=== PATIENT | male | born 1940 | race Caucasian/White ===

== ENCOUNTER 2022-02-16 11:54 | Outpatient (CLI) | payer MEDICARE, SELFPAY | END 2022-02-16 11:55 | disposition home or self-care (01) | LOC: OP CLINIC 11:54 | PROVIDERS: PCP Surgery; Visit Provider Internal Medicine Gastroenterology | DX: D50.9 Iron deficiency anemia, unspecified (principal); K63.5 Polyp of colon; K57.30 Diverticulosis of large intestine without perforation or abscess without bleeding; K44.9 Diaphragmatic hernia without obstruction or gangrene; K31.89 Other diseases of stomach and duodenum; K90.0 Celiac disease | CPT/HCPCS: 43239; 45380; 88305; 88342; 99153; J2250; J3010 ==

== ENCOUNTER 2023-07-19 10:32 | Emergency (ER) | payer MEDICARE, SELFPAY ==
[2023-07-19] VITALS (13 sets, daily range): BP systolic 136–172; BP diastolic 73–127; PULSE 74–92; RESP 12–16; TEMP 36.7; O2SAT 91–98; BMI 25.1
--- NOTE | 2023-07-19 11:01 | XR_ITS ---
Final Report Patient: CARY SNOW Facility:?[facility] Patient ID:?[id number] Site Patient ID:?[id number]. Site :?[id number] Study:?XRay Chest 2 VIEW-07/19/2023 11:24:22 AM Ordering Physician:JFEF Final Report: Indication: Chest pain and shortness of breath Comparison: None available. Technique: PA and lateral views of the chest Findings: There are increased interstitial markings likely representing pulmonary edema with basilar atelectasis and parenchymal scar. There is no pneumothorax or pleural effusion. The cardiomediastinal silhouette is within normal limits. The bony thorax is grossly intact. Impression: Chronic interstitial changes with mildly increased interstitial markings likely representing pulmonary edema. Dictated by Mauri Alaniz MD @ 07/19/2023 11:41:21 AM (Electronic Signature)
--- NOTE | 2023-07-19 11:03 | ED.GENADULT ---
HPI - General Adult General Chief complaint: Chest Pain Stated complaint: Chest pain, short of breath Time Seen by Provider: 07/19/23 10:47 History of Present Illness HPI narrative: This 82-year-old male comes in reporting some cough and shortness of breath over the past couple weeks. Since last evening he has also developed some chest discomfort in the right upper anterior chest that he states is sometimes reproducible with taking a deep breath. He reports that he typically exercises on a stationary bicycle and did so this morning. He does not have any cardiac history except for some atrial fibrillation a couple years ago. He does not report any exercise intolerance. He has not had any nausea, vomiting, lightheadedness, or diaphoresis. Currently he is not feeling any pain. Related Data Home Medications Medication Instructions Recorded Confirmed alendronate 70 mg tablet 70 mg PO 07/19/23 diclofenac sodium 1 % topical gel 2 g topical QID 07/19/23 07/19/23 methotrexate sodium 2.5 mg tablet 20 mg PO 07/19/23 metoprolol succinate 50 mg 50 mg PO DAILY 07/19/23 07/19/23 tablet,extended release 24 hr pantoprazole 40 mg tablet,delayed 40 mg PO DAILY 07/19/23 07/19/23 release Allergies Allergy/AdvReac Type Severity Reaction Status Date / Time acetaminophen [From Percocet] Allergy Mild Fainting Verified 06/24/23 14:55 lisinopril Allergy Mild Cough Verified 06/24/23 14:55 oxycodone [From Percocet] Allergy Mild Fainting Verified 06/24/23 14:55 Review of Systems Status of ROS: Reports: 10 or more systems reviewed and unremarkable except as noted in History and below Narrative: Constitutional: No fevers, no weight gain or loss. Eyes: No discharge. No vision changes. HENT: No congestion, no sore throat, no ear pain. Cardiovascular: No palpitations. Respiratory: He reports some shortness of breath and has had an occasional cough. Gastrointestinal: No abdominal pain, no vomiting, no diarrhea. Genitourinary: No dysuria, no hematuria. Musculoskeletal: Normal range of motion. Skin: No rashes, no pruritis. Neurological: No dizziness, weakness, sensory change, speech change. Endo/Heme/Allergies: No bruising or bleeding. No polydipsia. Pysch: no suicidality, no anxiety, no insomnia. All other systems reviewed and are negative. PFS PFS Social History Smoking Status: Never smoker How often do you have a drink containing alcohol: never AUDIT-C Alcohol total score: 0 Non-prescribed substance use: denies use Exam Narrative: Exam Narrative: Constitutional: Well-developed, well-nourished, no acute distress. HEENT: Normocephalic, atraumatic. Neck: Normal range of motion. Nontender. Supple. Heart: Regular. No murmurs. Normal rate. Intact distal pulses. Lungs: Clear to auscultation. No chest discomfort. No wheezes, rhonchi, or rales. Abdomen: Normal bowel sounds. Nontender. No rebound tenderness. Genitalia: Deferred. Back: No midline tenderness. Normal range of motion. Extremities: Normal range of motion. No injury. Skin: Intact. No rash. Warm. No erythema or pallor. Neurologic: No altered sensation. No weakness. Alert and oriented. Psychiatric: No suicidality. No anxiety or depression. No insomnia. Nursing notes and vitals signs are reviewed. Const: Vital Signs, click to edit/add: Vital Signs - 24 hr 07/19/23 10:39 07/19/23 11:02 07/19/23 11:31 Temperature 98.1 F Pulse Rate 82 77 Pulse Rate [Pulse Oximeter] 80 Respiratory Rate 14 14 16 Blood Pressure 144/92 H 148/89 H Blood Pressure [Le ft Upper Arm] 172/88 H Pulse Oximetry 98 95 97 Oxygen Delivery Me thod Room Air 07/19/23 12:02 07/19/23 12:32 07/19/23 13:01 Temperature Pulse Rate 74 77 78 Pulse Rate [Pulse Oximeter] Respiratory Rate 12 14 14 Blood Pressure 161/105 H 136/78 154/80 H Blood Pressure [Le ft Upper Arm] Pulse Oximetry 95 93 94 Oxygen Delivery Me thod 07/19/23 13:32 07/19/23 14:01 07/19/23 15:01 Temperature Pulse Rate 74 92 75 Pulse Rate [Pulse Oximeter] Respiratory Rate 14 14 16 Blood Pressure 158/90 H 167/127 H 157/74 H Blood Pressure [Le ft Upper Arm] Pulse Oximetry 91 91 93 Oxygen Delivery Me thod Course Vital Signs Vital signs: Initial Vital Signs Temperature 98.1 F 07/19/23 10:39 Temperature Source Temporal Artery Scan 07/19/23 10:39 Pulse Rate 80 07/19/23 10:39 Pulse Rhythm Regular 07/19/23 10:39 Respiratory Rate 14 07/19/23 10:39 Blood Pressure 172/88 H 07/19/23 10:39 Blood Pressure Mean 116 H 07/19/23 10:39 Blood Pressure Position Supine 07/19/23 10:39 Pulse Oximetry 98 07/19/23 10:39 Oxygen Delivery Method Room Air 07/19/23 10:39 Vital Signs Temperature 98.1 F 07/19/23 10:39 Pulse Rate 80 07/19/23 10:39 Respiratory Rate 14 07/19/23 10:39 Blood Pressure 172/88 H 07/19/23 10:39 Pulse Oximetry 98 07/19/23 10:39 Oxygen Delivery Method Room Air 07/19/23 10:39 Temperature 98.1 F 07/19/23 10:39 Pulse Rate 75 07/19/23 15:01 Respiratory Rate 16 07/19/23 15:01 Blood Pressure 157/74 H 07/19/23 15:01 Pulse Oximetry 93 07/19/23 15:01 Oxygen Delivery Method Room Air 07/19/23 10:39 Medical Decision Making MDM Narrative Medical decision making narrative: This patient comes in reporting symptoms as described above. EKG shows normal sinus rhythm. There is possibility of some T-wave inversion in the lateral leads. The patient reports some discomfort in his right upper chest that seems reproducible. His troponin returns at 0. Other labs are also reassuring except his D-dimer does return elevated at 1.8. A CT scan of the chest with IV contrast is obtained and this returns with no evidence of pulmonary embolism or acute cardiopulmonary disease. This patient is okay to return home and continue current plans with activity as tolerated. Lab Data Labs: Lab Results 07/19/23 Range/Units 11:10 WBC 4.46 L (4.50-11.00) K/uL RBC 3.79 L (4.30-5.90) m/uL Hgb 11.4 L (13.5-17.5) gm/dL Hct 34.6 L (37.0-53.0) % MCV 91 (80-100) fL MCH 30 (26-34) pg MCHC 33 (32-36) gm/dL RDW Coeff of Uziel 15.2 (11.5-15.5) % Plt Count 264 (140-440) K/uL Neut % (Auto) 57.6 (42.0-72.0) % Lymph % (Auto) 20.2 (20-44) % Kent % (Auto) 14.3 H (0.0-11.0) % Eos % (Auto) 7.0 (0.0-7.0) % Baso % (Auto) 0.7 (0.0-3.0) % Neut # (Auto) 2.60 (1.7-7.0) K/uL Lymph # (Auto) 0.90 (0.90-2.90) K/uL Kent # (Auto) 0.60 (0.00-0.90) K/UL Eos # (Auto) 0.30 (0.00-0.50) K/uL Baso # (Auto) 0.00 (0.00-0.30) K/uL Abs Immat Gran (auto) 0.00 (0.00-0.30) K/uL Imm/Tot Granulo (auto) 0.2 % D-Dimer Quant (PE/DVT) 1.80 H (0.00-0.50) ug/ml Sodium 136 (135-149) mmol/L Potassium 4.0 (3.6-5.1) mmol/L Chloride 101 (96-114) mmol/L Carbon Dioxide 26 (20-32) mmol/L Anion Gap 9 (7-15) mEq/L BUN 18 (7-30) mg/dL Creatinine 0.7 (0.5-1.5) mg/dL Estimated Creat Clear 51.41 Estimated GFR 91 ml/min Glucose 113 (60-115) mg/dL Calcium 9.3 (8.4-10.6) mg/dL POC Troponin I 0.00 L (0.01-0.04) ng/ml ECG Data Attestation: I personally reviewed and interpreted this ECG as follows: Interpretation: Normal sinus rhythm. Rate is 81 beats per minute. There is some T-wave inversion in leads 1 and aVL possibly indicating some lateral ischemia. Discharge Plan Discharge Clinical Impression: Atypical chest pain Patient Disposition: Home, Self-Care Condition: Stable Additional Instructions: Continue current plans. Activity as tolerated. Follow up with MD or return if symptoms are persistent or worsening. Prescriptions: No Action metoprolol succinate 50 mg tablet extended release 24 hr 50 mg PO DAILY alendronate 70 mg tablet 70 mg PO methotrexate sodium 2.5 mg tablet 20 mg PO pantoprazole 40 mg tablet,delayed release (DR/EC) 40 mg PO DAILY diclofenac sodium 1 % gel 2 g topical QID Rx Instructions: apply to single elbow, wrist or hand; for hand includes palm/fingers/back of hand Follow Up/Referrals: Jonah Tejada MD [Primary Care Provider] - Stand Alone Forms: [facility] Info Instructions
--- OUTSIDE RECORDS SUMMARY | 2023-07-19 11:16 | XMS_ITS | Clinical Summary ---
Author Name Unknown Organization [facility] Address [place], [place] [address] Care Team Providers Care Burlapper Name Role Phone Jonah Tejada MD Primary Care Provider [phone] Jonah Tejada MD Unavailable [phone] Allergies Active Allergy Reactions Criticality Noted Date Comments Lisinopril Cough Low 06/26/2020 Oxycodone-Acetaminophen Syncope 07/31/2006 Medications Medication Sig Dispensed Refills Start Date End Date Status vit C,E,Zn,Za-dotoe5-pg t-zeax (PRESERVISION AREDS 2, OMEGA-3,) 250-2.5-0.5 mg capsule Take by mouth. 0 08/29/2015 Active diclofenac topical (VOLTAREN) 1 % gelIndications:Acut e pain of both knees Apply 4 g topically to affected area(s) 4 times daily. 100 g 0 12/01/2019 Active Additional Information Patient taking differently:4 g TopicalQID PRN, for knee pain, Reported on 06/19/2020 cyanocobalamin (Vitamin B-12) 1,000 mcg tabletIndications:B 12 deficiency Take 1 Tablet (1,000 mcg) by mouth once daily. 90 Tablet 3 09/17/2021 Active leuprolide acetate, 6 month, (Isis, 6 month,) 45 mg subcutaneous syringe 1 mg. 0 Active calcium carbonate-vitamin D3 600 mg-12.5 mcg (500 unit) cap Calcium 600 with Vitamin D3 600 mg-12.5 mcg (500 unit) capsule Take by oral route. 0 Active prednisoLONE acetate 1% ophthalmic (ECONOPRED PLUS, PRED FORTE, OMNIPRED) suspension INSTILL 1 DROP INTO LEFT EYE BY OPHTHALMIC ROUTE 4 TIMES PER DAY SHAKE BEFORE USE 0 09/04/2022 Active neomycin-polymyxin- dexAMETHasone (MAXITROL) ophthalmic ointment APPLY SMALL AMOUNT TO INFERIOR CUL DE SAC OF LEFT EYE EVERY 3 HOURS WHILE AWAKE 0 09/01/2022 Active atropine (ISOPTO ATROPINE) 1 % ophthalmic solution 0 09/02/2022 Activ e acetaminophen SR (Tylenol 8 Hour) 650 mg Extended-Release tabletIndications:O steoporosis, unspecified osteoporosis type, unspecified pathological fracture presence Take 2 Tablets (1,300 mg) by mouth. Taking once every morning as needed for pain Max acetaminophen dose: 4000mg in 24 hrs. 0 09/14/2022 Active diphenhydrAMINE-jeanne taminophen 25-500 mg (Tylenol PM Extra Strength) 25-500 mg tabletIndications:O steoporosis, unspecified osteoporosis type, unspecified pathological fracture presence Take 2 Tablets by mouth at bedtime if needed (pain). Max acetaminophen dose: 4000mg in 24 hrs. 0 09/14/2022 Active pantoprazole (PROTONIX) 40 mg delayed-release tabletIndications:A cute pericarditis, unspecified type Take 1 Tablet (40 mg) by mouth once daily before a meal. 90 Tablet 3 09/14/2022 Active metoprolol succinate (Toprol XL) 50 mg sustained-release tabletIndications:H TN (hypertension) Take 1 Tablet (50 mg) by mouth once daily. 90 Tablet 4 09/14/2022 Active alendronate (FOSAMAX) 70 mg tabletIndications:O steoporosis, unspecified osteoporosis type, unspecified pathological fracture presence TAKE ONE TABLET BY MOUTH ONCE A WEEK IN THE MORNING. TAKE ON EMPTY STOMACH WITH FULL GLASS OF WATER. DO NOT LIE DOWN FOR ONE HOUR. TAKE ON SATURDAYS. 13 Tablet 0 06/19/2023 Active Active Problems Problem Noted Date Diagnosed Date Acute pericarditis 06/21/2020 Paroxysmal atrial fibrillati on with RVR- new diagnosis 06/19/2020 06/19/2020 Pericardial effusion 06/19/2020 Anemia 06/19/2020 Pulmonary fibrosis 09/06/2019 Overview: Noted on chest CT 07/2019 Prostate cancer 04/21/2017 Osteoporosis 09/03/2015 Celiac disease 09/23/2012 Overview: EGD 08/2012 small benign gastric ulcer, celiac disease Patient and spouse visited with Solar Development Engineer: patient very good about making adaptations. EGD 01/2022 celiac disease, patient is not currently following gluten-free diet. Reinforced recommendations for gluten-free diet for life. Sensorineural hearing loss, asymmetrical 012 Overview: Right > left: noted on Audiogram 07/2012; patient without symptoms 08/15/2012 ACP (advance care planning) 08/13/2011 Overview: Patient has identified Health Care Agent(s): Yes Add Health Care Agents: Yes Health Care Agent(s): Primary Health Care Agent: Rae Jenkins Relationship: Secondary Health Care Agent: Arcelia Peña Relationship: daughter cell Patient has Advance Care Plan Documents (Health Care Directive, POLST): Yes Advance Care Plan Documents: Health Care Directive Patient has identified Specific Treatment Preferences: Yes Specific Treatment Preferences: a.) Code Status: CPR/Attempt Resuscitation b.) Goals of Treatment: Limited Interventions and treat reversible conditions. Provide interventions aimed at treatment of new or reversible illness/injury or non-life threatening chronic conditions. Duration of invasive or uncomfortable interventions should generally be limited. Personal history of colonic polyps 09/19/2009 Overview: Colonoscopy 08/2009 polyp repeat in 5 years Colonoscopy 07/2012 diverticulosis repeat in 5 years Colonoscopy 08/2017 2 polyps, repeat in 5 years Colonoscopy 01/2022 normal, no follow up needed Unspecified essential hypertension 08/07/2009 Overview: Started Lisinopril 07/2009. Encounters Date Type Department Care Team Description 07/19/2023 Nurse Triage [facility] [address] [place] [address] Jonah Tejada MD Shortness Of Breath 06/18/2023 Refill [facility] [address] [place] [address] Jonah Tejada MD Refill Request (Alendronate) from Last 3 Months Immunizations Name Administration Dates Next Due AMB INFLUENZA IIV3 (AGE 65+ YRS) PF (Flu Clinic Only) 03/15/2018 AMB Influenza, IIV3 (Age >=3 years)(Flu Clinic Only) 03/01/2012,03/05/2009,03/28/2008 Amb Influenza, Inact (High-d ose) (Flu Clinic Only) 03/03/2016,03/06/2014 Amb Influenza, Inactivated A IIV4 (Age 65+ Years) Preserv Free 02/14/2020 COVID-19 vaccine (Surfly-Bio NTech 30mcg/0.3mL) 12YO+ ROSENDO-SUCROSE PF, MDV 09/12/2021 COVID-19 vaccine (Surfly-Bio NTech 30mcg/0.3mL) PF, MDV 03/12/2021,08/15/2020,07/25/2020 Influenza A (H1N1), Inactivated 06/11/2009 Influenza A (H1N1), Inactiva lashay (Age >=3 Years) 05/31/2009 Influenza, High-dose Inactivated 02/09/2019,11/2014 Influenza, High-dose Quadriv alent Inactivated 02/24/2022 Influenza, IIV3 (Age 6-35 mos) 03/19/2011 Influenza, IIV3 (Age >=3 years) 02/16/20 13,03/19/2011,03/06/2010,2006,04/14/2006,03/16/2005,03/21/2004 Influenza, Inactivated AIIV4 (Age 65+ Years) Preserv Free 03/10/2021 Influenza, Inactivated IIV3 (Age 65+ Years) Preserv Free 03/04/2017 Pneumococcal Conj 20-valent (Prevnar 20) 10/20/2021 Pneumococcal Poly,23-Valent (Pneumovax) 07/28/2004 Pneumococcal conj 13-Valent (Prevnar 13) 08/29/2015,08/27/2014 Td (Age >=7 Years) 11/10/2002 Tdap 04/15/2022,08/08/2010 Zoster (Shingrix-RZV, recombinant) 09/26/2019, Zoster (Zostavax-ZVL, live) 08/04/2007 Family History Medical History Relation Name Comments Alcohol/Drug Brother 3 Alexys Cancer Father Ja Pancreatic Canc er Hypertension Father Ja CHF Stroke Father Ja TIA Other Mother Ebony Parkinsons Anesthesia Problem No Family History Blood Disease No Family History Relation Name Status Comments Brother 1 Paul Alive Brother 2 Joesph Alive Brother 3 Alexys Alive Brother 4 Don Alive Father Ja (Age 90) 02/28/2001 Mother Ebony (Age 75) Sister Eulalia Alive Social History Tobacco Use Types Packs/Day Years Used Date Smoking Tobacco: Former Cigarettes 0.3 5.7 1 965 - 02/28/1970 Smokeless Tobacco: Never Tobacco Cessation:Counseling Given: Not Answered Alcohol Use Standard Drinks/Week Comments Yes 1 (1 standard drink = 0.6 oz pur e alcohol) very occasionally PHQ-2 Answer Date Recorded PHQ-2 TOTAL SCORE 0 09/14/2022 Social Connections Answer Date Recorded Frequency of Communication with Friends and Fami ly Not on file 09/14/2022 Financial Resource Strain Answer Date R ecorded Difficulty of Paying Living Expenses 3 09/12/2021 Difficulty of Paying Living Expenses Not on file 09/12/2021 Food Insecurity Answer Date Recorded Worried About Running Out of Food in the Last Ye ar 1 09/12/2021 Transportation Needs Answer Date Record ed Lack of Transportation (Medical) 1 09/12/2021 Housing Stability Answer Date Recorded Unable to Pay for Housing in the Last Year 1 09/12/2021 Sex and Gender Information Value Date Recorded Sex Assigned at Not on file Gender Identity Not on file Sexual Orientation Not on file Obstetrics History Last Filed Vital Signs Vital Sign Reading Time Taken Comments Blood Pressure 145/80 09/14/2022 7:41 AM CDT Pulse 81 09/14/2022 7:34 AM CDT Temperature 36.6 ??C (97.8 ??F) 09/09/2020 7:31 AM CD T Respiratory Rate 20 03/24/2021 2:11 PM CDT Oxygen Saturation 97% 09/14/2022 7:34 AM CDT Inhaled Oxygen Concentration - - Weight 76.8 kg (169 lb 6.4 oz) 09/14/2022 7:34 A M CDT Height 171.5 cm (5' 7.52) 09/14/2022 7:34 AM CD T Body Mass Index 26.12 09/14/2022 7:34 AM CDT Plan of Treatment Upcoming Encounters Date Type Department Care Team (Late st Contact Info) Description 09/16/2023 9:00 AM CDT Office Visit [facility] [address] [place] [address] Jonah Tejada MD [address] [place] [address] Health Maintenance Due Date Last Done Comments COVID-19 vaccine series ( season) 2023 02/24/2022, 09/12/2021, 03/12/2021, Additional history exists Influenza for age 65+ 01/29/2023 02/24/2022 , 03/10/2021, 02/14/2020, Additional history exists BMI (ht and wt on same day) for age 18+ 09/15/2023 09/14/2022, 09/12/2021, 09/09/2020, Additional history exists Depression screening for age 12+ 09/15/2023 09/14/2022, 09/14/2022, 09/12/2021, Additional history exists Medicare Wellness for age 65+ 09/15/2023, 09/12/2021, 09/09/2020, Additional history exists Tetanus booster 04/15/2032 04/15/2022, 07/29, 11/10/2002 Zoster (shingles) series for age 50+ Completed 09/26/2019, 02/09/2019, 08/04/2007 Pneumococcal series for age 65+ Completed 10/20/2021, 08/29/2015, 08/27/2014, Additional history exists Tdap Completed 04/15/2022, 08/08/2010 Advance Directives Documents on File Type Date Recorded Patient Braiding Operator Expl anation Healthcare Directive 11/25/2015 10:24 AM A Stalin WEBB, 10/25/2015 Healthcare Directive 09/23/2011 8:56 AM HC D Latest Code Status on File Code Status Date Activated Date Inactivated Comments Full Code 06/19/2020 9:53 PM 06/21/2020 6:13 PM Question Answer Comments Code Status Discussion: Discussed Care Teams Burlapper Relationship Specialty Start Date End Date Jonah Tejada MD [address] [place] [address] PCP - General Family Practice 07/26/19 Jonah Tejada MD [address] [place] [address] Family Practice 07/26/19
--- OUTSIDE RECORDS SUMMARY | 2023-07-19 11:16 | XMS_ITS | Data Portability ---
Author Name Unknown Address [address] [place] [address] Phone [phone] Organization [facility], [facility] Address 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 [email or web address] Not available 02/04/2022 16:48:26 Plan of Treatment Reminders Order Date Submit Date Provider Last Modified By Organization Details Last Modified Time Details Appointments PSA 10 2023 01:30P M [facility] Not available Not available Not available ESTABLI SHED 10 2023 01:50P M Naeem Mancilla MD Not available Not available Not available Lab PSA, serum or plasma 2022 023 elijah [facility], [address], [place], [address], 03/11/2023 14:01:16 PSA, serum or plasma 2022 023 balaji [facility], [address], [place], [address], 08/05/2022 15:30:37 PSA, serum or plasma 2021 022 [facility], [address] [place], [address], 02/04/2022 16:08:49 Referral None recorde d. Procedures None recorde d. Surgeries None recorde d. Imaging None recorde d. Medication Orders Eligard 45 mg (6 month) subcuta neous syringe 2022 023 [facility], [place], [place], [address] [place], [address], 03/11/2023 14:24:29 Eligard 45 mg (6 month) subcuta neous syringe 2022 023 [facility], [place], [place], [address] [place], [address], 08/05/2022 15:53:27 Eligard 45 mg (6 month) subcuta neous syringe 2021 022 [facility], [place], [place], [address] [place], [address], 02/04/2022 16:15:34 Patient TargetsNo targets recorded. Patient InstructionsNo instructions recorded. Reason for Referral None Reported. Results Created Date Observation Date Name Description Value Unit Range Abnormal Flag LastModifiedBy Organization Detail LastModifiedTime 02/05/20 22 02/04/2022 PSA, serum or plasm a PSA 0.41ng /ml 0-4.0 Not Available [facility] [address], [place], [address], 02/04/2022 16:02:30 08/06/19 23 08/05/2022 PSA, serum or plasm a PSA 0.33 ng/mL 0-4.0 Not Available [facility] [address], [place], [address], 08/05/2022 15:30:12 03/11/20 23 03/11/2023 PSA, serum or plasm a PSA 0.34 ng/ml 0-4.0 Not Available [facility] [address], [place], [address], 03/11/2023 13:59:50 Result Notes None recorded. Procedures Surgical History Date Name Laterality Status Provider Name and Address Organization Details Recorded Time 3 Blood Draw/SOUND TESTER/PSA RESULTS completed Nisha vides [facility] 03/11/2023 13:59:43 3 Isis completed Nisha vides [facility] 03/11/2023 14:23:28 3 Blood Draw/SOUND TESTER/PSA RESULTS completed Jackelyn Barnett [facility] 08/05/2022 15:30:09 3 Isis completed Jackelyn vides [facility] 08/05/2022 15:51:54 2 Blood Draw/SOUND TESTER/PSA RESULTS [facility]04[facility] 16:07:27 Imaging Results None recorded. Procedure Notes None recorded. Medical Equipment None Reported. Allergies Allergen ID Allergen Name Allergen Category Reaction Reaction Severity Criticality Documentation Date Start Date Code Code System Note Provider Name and Address Organization Details Recorded Time 071146 acetamino phen / oxycodone medicatio n Not available Not available Not available 11/16/20192019 58621 3 RxNorm Not Available [facility] 0 00:42:27 Medications Name Sig Start Date Stop Date Status Note LastModified by Organization Details LastModified Time amoxicillin 500 mg capsule TAKE 1 CAPSULE BY MOUTH THREE TIMES A DAY UNTIL GONE 02/04 completed Not Available Not Available Not Available metoprolol succinate ER 50 mg tablet,exte nded release 24 hr TAKE ONE TABLET BY MOUTH EVERY DAY active Not Available Not Available No t Available alendronate 70 mg tablet TAKE ONE TABLET BY MOUTH ONCE A WEEK IN THE MORNING. TAKE ON EMPTY STOMACH WITH FULL GLASS OF WATER. DO NOT LIE DOWN FOR ONE HOUR. TAKE ON S active Not Available Not Available No t Available prednisolon e acetate 1 % eye drops,suspe nsion PLEASE SEE ATTACHED FOR DETAILED DIRECTION S 03/11 completed Not Available Not Available Not Available methotrexat e sodium 2.5 mg tablet TAKE 8 TABLETS BY MOUTH ONCE A WEEK active Not Available Not Available No t Available pantoprazol e 40 mg tablet,yvette yed release TAKE ONE TABLET BY MOUTH EVERY DAY BEFORE A MEAL active Not Available Not Available No t Available atropine 1 % eye drops 03/11 completed Not Available Not Available Not Available neomycin 3.5 mg/g-polymy imelda B 10,000 unit/g-dexa meth 0.1 % eye oint APPLY SMALL AMOUNT TO INFERIOR CUL DE SAC OF LEFT EYE EVERY 3 HOURS WHILE AWAKE 03/11 completed Not Available Not Available Not Available Eligard 45 mg (6 month) subcutaneou s syringe Inject 1 mg by subcutane ous route. 2022 active Not Available Not Available Not Avai lable chlorhexidi ne gluconate 0.12 % mouthwash SWISH AND SPIT 15ML BY MOUTH TWICE A DAY FOR 7 DAYS 02/04 completed Not Available Not Available Not Available Tylenol active Not Available Not Avail able Not Available Vitamin B12 active Not Available Not A vailable Not Available Golytely 236 gram-22.74 gram-6.74 gram-5.86 gram oral solution DRINK 3 LITERS (3/4 OF BOTTLE) THE DAY PRIOR TO COLONOSCO PY AND 1 LITER (REMAININ G 1/4 OF BOTTLE) 6 HOURS PRIOR TO COLONOSCO PY APPOINTME NT 02/04 completed Not Available Not Available Not Available Calcium 600 with Vitamin D3 600 mg-12.5 mcg (500 unit) capsule Take by oral route. active Not Available Not Available No t Available Voltaren Arthritis Pain 1 % topical gel APPLY 2 GRAMS TO THE AFFECTED AREA(S) BY TOPICAL ROUTE 4 TIMES PER DAY active Not Available Not Available No t Available PreserVisio n AREDS 2 Plus MV active Not Available Not Available Not Available Vitals Date Recorded Body height Body mass index (BMI) Body weight Provider Name and Address Organization Details Last Updated DateTime 02/04/2022 170.18 cm 25.1 kg/m2 55333.78 g Immanuel Laura [place], [place] [facility] 02/04/2022 15:58:05 Date Recorded Body height Body mass index (BMI) Body weight Provider Name and Address Organization Details Last Updated DateTime 08/05/2022 170.18 cm 25.1 kg/m2 24488.78 g Jackelyn Barnett [facility] 08/05/2022 15:29:43 Date Recorded Body height Body mass index (BMI) Body weight Provider Name and Address Organization Details Last Updated DateTime 03/11/2023 170.18 cm 25.1 kg/m2 86109.78 g Nisha Kim [facility] 03/11/2023 13:59:10 Social History Question Answer Notes LastModified by Organizat ion Details LastModified Time Tobacco Smoking Status Former Smoker Immanuel Laura [facility] 02/04/2022 16:01:40 What Is Your Level Of Alcohol Consumption? Occasional Information not available 02/04/2022 What Is Your Level Of Caffeine Consumption? Moderate Information not available 02/04/2022 Are You Currently Employed? No Information not available 02/04/2022 When Did You Quit Smoking? 16+yearssincel astcigarette Information not available 02/04/2022 Recreational Drug Use No Information not available 02/04/2022 What Was The Date Of Your Most Recent Tobacco Screening? 03/11/2023 [email or web address] Information not available 03/11/2023 What Is Your Relationship Status? Information not available 02/04/2022 Do You Use Any Illicit Or Recreational Drugs? No Information not available 02/04/2022 Has Tobacco Cessation Counseling Been Provided? No Information not available 02/04/2022 How Many Years Have You Smoked Tobacco? 6 Information not available 02/04/2022 Do You Or Have You Ever Used Any Other Forms Of Tobacco Or Nicotine? No Information not available 02/04/2022 Sex: Male Functional Status None recorded. Mental Status None recorded. Family History Nothing Reported. Medical History Condition Response Other Y High Blood Pressure Y Cancer Y Immunizations Vaccine Type Date Status Provider Name and Address Organization Details Recorded Time influenza, trivalent, adjuvanted 03/04/2017 completed Nisha Kim [facility], [facility] 03/11/2023 13:59:15 influenza, trivalent, adjuvanted 03/15/2018 completed Nisha vides, [facility] 03/11/2023 13:59:15 zoster recombinant 02/09/2019 completed Nisha vides, [facility] 03/11/2023 13:59:15 Influenza vaccine, quadrivalent, adjuvanted 02/14/2020 completed Nisha Kim null, [facility] 03/11/2023 13:59:15 Influenza vaccine, quadrivalent, adjuvanted 03/10/2021 completed Nisha Kim null, [facility] 03/11/2023 13:59:15 COVID-19, mRNA, LNP-S, PF, 30 mcg/0.3 mL dose 07/25/2020 completed Nisha vides, [facility] 03/11/2023 13:59:16 COVID-19, mRNA, LNP-S, PF, 30 mcg/0.3 mL dose 08/15/2020 completed Nisha vides, [facility] 03/11/2023 13:59:16 COVID-19, mRNA, LNP-S, PF, 30 mcg/0.3 mL dose 03/12/2021 [facility]11[facility]23 13:59:16 Pneumococcal conjugate PCV20, polysaccharide [id number] conjugate, adjuvant, PF 10/20/2021 completed Nisha vides, [facility] 03/11/2023 13:59:16 COVID-19, mRNA, LNP-S, PF, 30 mcg/0.3 mL dose, geno-sucrose 09/12/2021 [facility] 03/11/2023 13:59:16 Tdap 08/08/2010 [facility] 03/11/2023 13:59:16 Novel [id number], all formulations 06/11/2009 completed Nisha vides, [facility] 03/11/2023 13:59:16 Pneumococcal conjugate PCV 13 08/27/2014 [facility] 03/11/2023 13:59:16 Pneumococcal conjugate PCV 13 08/29/2015 completed Nisha Kim null, [facility] 03/11/2023 13:59:16 zoster live 08/04/2007 completed Nisha Kim null, [facility] 03/11/2023 13:59:16 Influenza, high dose seasonal 02/09/2019 completed Nisha Kim null, [facility] 03/11/2023 13:59:16 Influenza, high dose seasonal 03/03/2016 completed Nisha Osterbauer null, [facility] 03/11/2023 13:59:16 Influenza, high dose seasonal 03/06/2014 completed Nisha Herreraauer null, [facility] 03/11/2023 13:59:16 Influenza, high dose seasonal 03/06/2015 [facility] 03/11/2023 13:59:16 Influenza, seasonal, injectable 02/15/2013 completed Nisha Herreraauer null, [facility] 03/11/2023 13:59:16 Influenza, seasonal, injectable 03/01/2012 [facility] 03/11/2023 13:59:16 Influenza, seasonal, injectable 03/05/2009 [facility] 03/11/2023 13:59:16 Influenza, seasonal, injectable 03/06/2010 [facility] 03/11/2023 13:59:16 Influenza, seasonal, injectable 03/16/2005 [facility] 03/11/2023 13:59:16 Influenza, seasonal, injectable 03/21/2004 [facility] 13:59:16 Influenza, seasonal, injectable 03/28/2008 [facility] 03/11/2023 13:59:16 Influenza, seasonal, injectable 04/13/2007 [facility]/11/2023 13:59:16 Influenza, seasonal, injectable 04/14/2006 completed Nisha Judy vides [facility] 03/11/2023 13:59:16 Influenza, seasonal, injectable, preservative free 03/19/2011 completed Nisha Judy peewee KEVIN [facility] 03/11/2023 13:59:16 Td (adult), 2 Lf tetanus toxoid, preservative free, adsorbed 11/10/2002 completed Nisha Kim peewee [facility] 03/11/2023 13:59:16 Past Encounters Encounter ID Performer Location Encounter Start Date Encounter Closed Date Diagnosis/Indication [id number] Naeem Mancilla MD [facility] [address] [place] [address] 02/04/2022 15:38:52 02/09/2022 15:38:20 Malignant tumor of prostate Carcinoma of prostate [id number] Naeem Mancilla MD [facility] [address] [place] [address] 08/05/2022 14:37:02 08/08/2022 11:31:08 Malignant tumor of prostate Prostate specific antigen above reference range Male hot flash [id number] Naeem Mancilla MD [facility] [address] [place] [address] 03/11/2023 13:33:29 03/16/2023 14:12:14 Malignant tumor of prostate Prostate specific antigen above reference range Male hot flash Health Concerns Section Related Observation LastModified by Organization Detai ls LastModified Time None Recorded Concern Status LastModified by Organization Details LastModified Time None Recorded Advance Directives Directive None Recorded Payers Encounter Date Sequence Insurance Name Policy Number Policy Gonsalves Covered Member ID Gonsalves Member ID Guarantor Name 03/11/2023 1 [employer] - DOS ON OR AFTER 19 (MEDICARE REPLACEMENT/ ADVANTAGE - PPO) [id number] 3 Jose Jenkins [id number] Jose Jenkins 08/05/2022 1 [employer] - DOS ON OR AFTER 19 (MEDICARE REPLACEMENT/ ADVANTAGE - PPO) [id number] Jose Jenkins [id number] Jose Jenkins 02/04/2022 1 [employer] - DOS ON OR AFTER 19 (MEDICARE REPLACEMENT/ ADVANTAGE - PPO) [id number] Jose Jenkins [id number] Jose Jenkins Notes Date Note Type Note Provider Name and Address Organization Details Recorded Time 02/04/2022 text/html HPI Notes: Mr. Bruno esparza is a very pleasant 81-year-old gentleman who has previously followed with my partner, Dr. Kc, in our [place] clinic for diagnosis of prostate cancer. Patient has elected to proceed with hormone therapy only rather than proceeding with surgical extrication or primary radiotherapy. Patient has had a nice response, his PSA measuring 9.4 at time of diagnosis and decreasing as low 0.11 on hormone therapy. Patient is overdue for his next Eligard injection so is here for follow-up. Naeem Mancilla MD [address] [place] [address],[address], [place], [address], [facility] 02/04/2022 16:48:46 08/05/2022 text/html HPI Notes: Mr. Bruno esparza is a very pleasant 81-year-old gentleman who has previously followed with my partner, Dr. Kc, in our [place] clinic for diagnosis of prostate cancer. Patient has elected to proceed with hormone therapy only rather than proceeding with surgical extrication or primary radiotherapy. Patient has had a nice response, his PSA measuring 9.4 at time of diagnosis and decreasing as low 0.11 on hormone therapy. Patient is overdue for his next Eligard injection so is here for follow-up. 08/06/19 Here for follow up history of prostate cancer. He has elected to forego any definitive treatment and has been utilizing ADT monotherapy despite recommendations from both myself and Dr. Kc. PSA today 0.33 ng/mL Naeem Mancilla MD [address] [place] [address],[address], [place], [address], [facility] 08/05/2022 17:54:10 03/11/2023 text/html HPI Notes: Mr. Bruno esparza is a very pleasant 82-year-old gentleman who has previously followed with my partner, Dr. Kc, in our [place] clinic for diagnosis of prostate cancer. Patient has elected to proceed with hormone therapy only rather than proceeding with surgical extrication or primary radiotherapy. Patient has had a nice response, his PSA measuring 9.4 at time of diagnosis and decreasing as low 0.11 on hormone therapy. Patient is overdue for his next Eligard injection so is here for follow-up. 08/06/19 Here for follow up history of prostate cancer. He has elected to forego any definitive treatment and has been utilizing ADT monotherapy despite recommendations from both myself and Dr. Kc. PSA today 0.33 ng/mL 03/11/2023: Here for follow up history of prostate cancer. He has elected to forego any definitive treatment and has been utilizing ADT monotherapy despite recommendations. Overall reports that he is doing well has some minor hot flashes but not bothersome enough to want to start treatment. PSA today 0.34 ng/mL Naeem Mancilla MD [address] [facility] [facility],[address], [place], [address], [facility] 03/12/2023 10:27:56
[2023-07-19 11:26] LABS: Basophils Percent Auto 0.7 % (0.0-3.0); Hematocrit 34.6 % (37.0-53.0); Hemoglobin* 11.4 gm/dL (13.5-17.5); Immature Granulocytes Pct Auto 0.2 %; Lymphocytes Percent Auto 20.2 % (20-44); Mean Corpuscular HGB Conc 33 gm/dL (32-36); Mean Corpuscular Hemoglobin 30 pg (26-34); Mean Corpuscular Volume 91 fL (80-100); Monocytes Percent Auto 14.3 % (0.0-11.0); Neutrophils Percent Auto 57.6 % (42.0-72.0); Platelet Count* 264 K/uL (140-440); RDW Coefficient of Variation % 15.2 % (11.5-15.5); Red Blood Count 3.79 m/uL (4.30-5.90); White Blood Count* 4.46 K/uL (4.50-11.00)
[2023-07-19 11:32] LABS: Slide Review Reflex No
[2023-07-19 11:40] LABS: Chloride* 101 mmol/L (96-114); Sodium* 136 mmol/L (135-149)
[2023-07-19 11:43] LABS: Anion Gap 9 mEq/L (7-15); Blood Urea Nitrogen* 18 mg/dL (7-30); Carbon Dioxide* 26 mmol/L (20-32); Creatinine* 0.7 mg/dL (0.5-1.5); Est. Creatinine Clearance* 51.41; Estimated Glomerular Filt Rate 91 ml/min; Glucose* 113 mg/dL (60-115)
[2023-07-19 11:44] LABS: Calcium* 9.3 mg/dL (8.4-10.6)
--- NOTE | 2023-07-19 13:55 | CT_ITS ---
Patient: CARY SNOW Facility:?[facility] RIS Patient ID:?[id number] Site Patient ID:?[id number]. Site :?[id number] Study:?CT-Chest PE 95CC ISOVUE 370-07/19/2023 2:41:42 PM Ordering Physician:JEFF Final Report: INDICATION: Chest pain, shortness of breath.. TECHNIQUE: CT chest PE was acquired with 95 cc Isovue 370 IV contrast. COMPARISON: None. FINDINGS: Heart and vasculature: Contrast opacification of the pulmonary arterial tree is adequate. No sign of pulmonary embolism. Heart size is normal. Thoracic aorta and pulmonary artery are normal in caliber. Lungs and pleura: No suspicious nodules or infiltrates. No pleural effusions, pleural thickening, or pneumothorax. Lymph nodes/mediastinum: No mediastinal, hilar, or axillary adenopathy. Chest wall: No masses. Upper abdomen: No acute or significant findings. Small hiatal hernia. Bones: Unremarkable for age. IMPRESSION: 1. No pulmonary embolism identified. 2. No acute cardiopulmonary process identified. Please note that all CT scans at this facility use dose modulation, iterative reconstruction, and/or weight-based dosing when appropriate to reduce radiation dose to as low as reasonably achievable. Dictated by Hussein Allan MD @ 07/19/2023 4:47:13 PM Signed by:?Hussein Allan MD @07/19/2023 4:47:13 PM (Electronic Signature)
== END 2023-07-19 17:10 | disposition home or self-care (01) ==
PROVIDERS: Emergency Provider Emergency Medicine Emergency Medical Services; PCP Surgery
DX: R07.9 Chest pain, unspecified (principal)
CPT/HCPCS: 36415; 71046; 71275; 80048; 84484; 85025; 85379; 93005; 99284; 99285; Q9967

== ENCOUNTER 2025-03-15 09:57 | Outpatient (CLI) | payer MEDICARE, SELFPAY | END 2025-03-15 09:58 | disposition home or self-care (01) | LOC: AMB 03-17 04:18 | PROVIDERS: PCP Surgery; Visit Provider Family Medicine | DX: R55 Syncope and collapse (principal) | CPT/HCPCS: A0425; A0427 ==

== ENCOUNTER 2025-03-15 10:24 | Emergency (ER) | payer MEDICARE, SELFPAY ==
[2025-03-15] VITALS (35 sets, daily range): BP systolic 120–178; BP diastolic 70–124; PULSE 63–80; RESP 7–35; TEMP 36.6; O2SAT 96–99
--- OUTSIDE RECORDS SUMMARY | 2025-03-15 10:29 | XMS_ITS | Clinical Summary ---
Author Organization [facility] Address [address] [place] [id number] Care Team Providers Care Machine Heddle Cleaner Name Role Phone Jonah Tejada MD Primary Care Provider [phone] Jonah Tejada MD Unavailable [phone] Allergies Active Allergy Reactions Criticality Noted Date Comments Lisinopril Cough Low 06/26/2020 Oxycodone-Acetaminophen Syncope 07/31/2006 Medications vit C,E,Zn,Cu-omega3 -lut-zeax (PRESERVISION AREDS 2, OMEGA-3,) 250-2.5-0.5 mg capsule Take by mouth. 0 08/29/19 16 Active cyanocobalamin (Vitamin B-12) 1,000 mcg tabletIndication s:B12 deficiency Take 1 Tablet (1,000 mcg) by mouth once daily. 90 Tablet 3 09/18/19 22 Active leuprolide acetate, 6 month, (Eligard, 6 month,) 45 mg subcutaneous syringe 1 mg. Active calcium carbonate-vitami n D3 600 mg-12.5 mcg (500 unit) cap Calcium 600 with Vitamin D3 600 mg-12.5 mcg (500 unit) capsule Take by oral route. Active atropine (ISOPTO ATROPINE) 1 % ophthalmic solution 09/03/19 23 Active acetaminophen SR (Tylenol 8 Hour) 650 mg Extended-Release tabletIndication s:Osteoporosis, unspecified osteoporosis type, unspecified pathological fracture presence Take 2 Tablets (1,300 mg) by mouth. Taking once every morning as needed for pain Max acetaminophen dose: 4000mg in 24 hrs. 0 09/15/19 23 Active diphenhydrAMINE- acetaminophen 25-500 mg (Tylenol PM Extra Strength) 25-500 mg tabletIndication s:Osteoporosis, unspecified osteoporosis type, unspecified pathological fracture presence Take 2 Tablets by mouth at bedtime if needed (pain). Max acetaminophen dose: 4000mg in 24 hrs. 0 09/15/19 23 Active methotrexate (RHEUMATREX) 2.5 mg tablet Take 20 mg by mouth once weekly. Active diclofenac topical (VOLTAREN) 1 % gelIndications:A cute pain of both knees Apply 4 g topically to affected area(s) 4 times daily if needed (for knee pain). 09/16/19 24 Active lidocaine 5 % topical patchIndications :Chronic right-sided low back pain without sciatica Apply on dry, clean, hairless skin. Apply 1 patch to painful area of skin for up to to 12 hours within 24 hour period. 30 Patch 11 10/27/19 24 Active pantoprazole 40 mg delayed-release tabletIndication s:Gastritis, presence of bleeding unspecified, unspecified chronicity, unspecified gastritis type Take 1 Tablet (40 mg) by mouth once daily before a meal. 90 Tablet 3 09/19/19 25 Active metoprolol succinate (Toprol XL) 50 mg sustained-releas e tabletIndication s:Hypertension, unspecified type,Paroxysmal SVT (supraventricula r tachycardia) (HC) Take 1 Tablet (50 mg) by mouth once daily. 90 Tablet 3 09/19/19 25 Active Active Problems Problem Noted Date Diagnosed Date Rheumatoid arthritis of [facility] sites without rheumatoid factor 09/16/2023 Paroxysmal atrial fibrillati on with RVR- new diagnosis 06/19/2020 06/19/2020 Anemia 06/19/2020 Overview (09/16/2023): Stable since 2010. 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 Pulmonary fibrosis 09/06/2019 Overview (09/06/2019): Noted on chest CT 07/2019 Prostate cancer 04/21/2017 Osteoporosis 09/03/2015 Celiac disease 09/23/2012 Overview (02/19/2022): EGD 08/2012 small benign gastric ulcer, celiac disease Patient and spouse visited with [employer] Developer: patient very good about making adaptations. EGD 01/2022 celiac disease, patient is not currently following gluten-free diet. Reinforced recommendations for gluten-free diet for life. Sensorineural hearing loss, asymmetrical 012 Overview (08/15/2012): Right > left: noted on Audiogram 07/2012; patient without symptoms 08/15/2012 ACP (advance care planning) 08/13/2011 Overview (09/22/2011): Patient has identified Health Care Agent(s): Yes Add Health Care Agents: Yes Health Care Agent(s): Primary Health Care Agent: Rae Jenkins Relationship: Secondary Health Care Agent: Arcelia Keenkajal Relationship: daughter cell Patient has Advance Care [...] limited. Personal history of colonic polyps 09/19/2009 Overview (02/19/2022): Colonoscopy 08/2009 polyp repeat in 5 years Colonoscopy 07/2012 diverticulosis repeat in 5 years Colonoscopy 08/2017 2 polyps, repeat in 5 years Colonoscopy 01/2022 normal, no follow up needed Unspecified essential hypertension 08/07/2009 Resolved Problems Problem Noted Date Diagnosed Date Resolved Date Acute pericarditis 06/21/2020 4 Pericardial effusion 06/19/2020 024 Encounters Date Type Department Care Team Description 01/23/2025 Telephone [facility] [place] [address] [address] Oncology, [facility] Appointment from Last 3 Months Immunizations Immunization Administration Dates Next Due AMB INFLUENZA IIV3 (AGE 65+ YRS) PF (Flu Clinic Only) 03/15/2018 AMB Influenza, IIV3 (Age >=3 years)(Flu Clinic Only) 03/01/2012,03/05/2009,03/28/2008 Amb Influenza, Inact (High-d ose) (Flu Clinic Only) 03/03/2016,03/06/2014 Amb Influenza, Inactivated A IIV4 (Age 65+ Years) Preserv Free 02/14/2020 COVID-19 VACCINE SPIKEVAX (M ODERNA 50MCG/0.5ML) 12YO+ PFS 09/18/2024,09/16/2023 COVID-19 vaccine ([employer] 30mcg/0.3mL) 12YO+ ROSENDO-SUCROSE PF, MDV 09/12/2021 COVID-19 vaccine ([employer] 30mcg/0.3mL) PF, MDV 03/12/2021,08/15/2020,07/25/2020 Influenza A (H1N1), Inactivated 06/11/2009 Influenza A (H1N1), Inactiva lashay (Age >=3 Years) 05/31/2009 Influenza, High-dose Inactivated 02/11/2024,01/29,03/06/2015 Influenza, High-dose Quadriv alent Inactivated 02/06/2023,02/24/2022 Influenza, IIV3 (Age 6-35 mos) 03/19/2011 Influenza, [...] Family History Blood Disease No Family History Cancer-breast No Family History Cancer-ovarian No Family History Relation Name Status Comments [...] Not Answered Alcohol Use Standard Drinks/Week Comments Not Currently 0 (1 standard drink = 0.6 oz pur e alcohol) very occasionally PHQ-2 Answer Date Recorded PHQ-2 TOTAL SCORE 0 09/18/2024 Social Connections Answer Date Recorded Do you often feel lonely or isolated from those around you? 0 09/18/2024 Financial Resource Strain Answer Date R ecorded Difficulty of Paying Living Expenses 3 09/18/2024 Difficulty of Paying Living Expenses Not on file 09/18/2024 Food Insecurity Answer Date Recorded Do you worry your food will run out before you are able to buy more? 1 09/18/2024 Transportation Needs Answer Date Record ed Does lack of transportation keep you from medica l appointments? 1 09/18/2024 Does lack of transportation keep you from work, meetings or getting things that you need? 1 09/18/2024 Housing Stability Answer Date Recorded What is your housing situation today? 1 09/18/2024 Utilities Answer Date Recorded Do you have trouble paying f or utilities (for example, heat, electricity, water, phone)? 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 Gender Identity Not on file Sexual Orientation Not on file Occupation Industry Job Start Date Job End Date Retired Not on file Not on file Not on file Obstetrics History Last Filed Vital Signs Vital Sign Reading Time Taken Comments Blood Pressure 170/80 10/11/2024 12:48 PM CDT Pulse 73 10/11/2024 12:48 PM CDT Temperature 36.6 C (97.8 F) 10/11/2024 12:48 PM CDT Respiratory Rate 18 10/11/2024 12:48 PM CDT Oxygen Saturation 98% 10/11/2024 12:48 PM CDT Inhaled Oxygen Concentration - - Weight 78.2 kg (172 lb 8 oz) 10/11/2024 12:48 PM CDT Height 171.1 cm (5' 7.36) 09/18/2024 8:02 AM CD T Body Mass Index 26.73 09/18/2024 8:02 AM CDT Plan of Treatment Upcoming Encounters Date Type Department Care Team (Late st Contact Info) Description 03/29/2025 7:30 AM CDT Orders Only [facility] [address] [place] [address] [place], [place] 04/05/2025 10:15 AM COLORING CHECKER Office Visit [facility] [address] [place] [address] Arcelia Randolph, [facility] [address] [place] [address] 09/20/2025 9:00 AM CDT Office Visit [facility] [address] [place] [address] Jonah Tejada MD [address] [place] [address] Health Maintenance Due Date Last Done Comments RSV vaccine for adults or (1 - 1-dose 75+ series) 2013 COVID-19 vaccine series (2024- season) 2025 09/18/2024, 02/11/2024, 09/16/2023, Additional history exists Influenza Vaccine (#1) 2025 , 03/10/2021, 02/14/2020, Additional history exists BMI (ht and wt on same day) for age 18+ 09/18/2025 09/18/2024, 09/16/2023, 09/14/2022, Additional history exists Medicare Wellness for age 65+ 09/19/2025 09/18/2024, 09/16/2023, 09/14/2022, Additional history exists Depression screening for age 12+ 09/20/2025 09/20/2024, 09/20/2024, 09/18/2024, Additional history exists Tetanus booster 04/15/2032 04/15/2022, 07/29, 11/10/2002 Zoster (shingles) series for age 50+ Completed 09/26/2019, 02/09/2019, 08/04/2007 Pneumococcal series for age 50+ Completed 10/20/2021, 08/29/2015, 08/27/2014, Additional history exists Hepatitis B series for 19+ Aged Out N o longer eligible based on patient's age to complete this topic Insurance [facility] MEDICARE ADVANTAGE MR MEDICARE PART B HB ONLY Advance Directives Documents on File Type Date Recorded Patient Production Shift Supervisor Expl [email or web address] Healthcare Directive 11/25/2015 10:24 AM A Stalin BRENDEN, 10/25/2015 Healthcare Directive 09/23/2011 8:56 AM HC D * Full Code (Latest Code Status on File) Date Activated Date Inactivated Comments 06/19/2020 9:53 PM 06/21/2020 6:13 PM Question Answer Comments Code Status Discussion: Discussed Care Teams Machine Heddle Cleaner Relationship Specialty Start Date End Date Jonah Tejada MD [address] [place] [address] PCP - General Family Practice 07/26/19 Jonah Tejada MD [address] [place] [address] Family Practice 07/26/19
--- NOTE | 2025-03-15 10:39 | ED_ITS ---
HPI - Syncope General Time Seen by Provider: 10:40 Date Seen: 03/15/25 Chief Complaint: Syncope/Fainted Stated Complaint: Near syncopal Time Seen by Provider: 03/15/25 10:39 Source: patient, family, RN notes reviewed and old records reviewed Mode of arrival: EMS Limitations: no limitations History of Present Illness HPI narrative: Jose is a very pleasant 84-year-old gentleman healthy with history of RA on methotrexate and history of hypertension currently on metoprolol who comes to the emergency room via EMS from the [facility] after experiencing near synco pe. Jose exercises frequently and this morning was no different. He was running late and therefore did not do his normal 20 minute walk prior to exercising. He states he was doing the circuit at the [facility] and was doing arms where he was seated and pushing weights forward. He notes that he was feeling somewhat lightheaded-he relates this to how he feels when he has to stand up or sit up quickly. He notes that this causes him to feel lightheaded and he usually just takes a couple of breaths and the feeling goes away within a few seconds. This is not new for him. However, today it was much worse. There was a physician and a nurse in the [facility] at the time and they noted that he did not look good-they noted that he was pale. They were able to gently lower him to the floor. He never loss consciousness and can remember the entire event. They do note that initially they could not palpate a pulse. They did a manual blood pressure and patient states it was low. Gradually his pulse did return. He did not have any on movements. He denied chest pain shortness of breath visual changes or headache. While laying on the floor his feelings dissipated. EMS brought him in and he has been absent of all of the symptoms since his arrival. Upon further discussion, he has not had any recent cough cold congestion. He denies fever chills vomiting nausea diarrhea. He denies any difficulty with urination. He has not had any lower extremity edema. Again, he feels like he is back to normal. No recent trauma or falls. He did eat breakfast and take his medications this morning. Related Data Home Medications ?Medication ?Instructions ?Recorded ?Confirmed alendronate 70 mg tablet 70 mg PO 07/19/23 diclofenac sodium 1 % topical gel 2 g topical QID 07/0103/15/25 methotrexate sodium 2.5 mg tablet 20 mg PO 07/19/23 metoprolol succinate 50 mg 50 mg PO DAILY 07/19/23 tablet,extended release 24 hr pantoprazole 40 mg tablet,delayed 40 mg PO DAILY 07/1903/15/25 release Allergies Allergy/AdvReac Type Severity Reaction Status Date / Time acetaminophen (From Percocet) Allergy Mild Fainting Verified 03/15/25 10:36 lisinopril Allergy Mild Cough Verified 03/15/25 10:36 oxycodone (From Percocet) Allergy Mild Fainting Verified 03/15/25 10:36 Review of Systems Status of ROS: Reports: 10 or more systems reviewed and unremarkable except as noted in History and below Narrative: No history of tobacco use. Const: Denies: fever, chills or fatigue Eyes: Denies: change in vision or blurry vision ENMT: Denies: throat pain, neck pain or nasal congestion Cardio: Denies: chest pain, palpitations, edema, swelling of feet/ankles, lightheadedness or shortness of breath with exertion Resp: Denies: shortness of breath or cough GI: Denies: abdominal pain, nausea, vomiting or diarrhea Musculo: Denies: neck pain Endo: Denies: fatigue PFSH PFSH Social History Smoking Status: Never smoker How often do you have a drink containing alcohol: never AUDIT-C Alcohol total score: 0 Non-prescribed substance use: denies use Exam Narrative: Exam Narrative: Alert and oriented. GCS of 15. External ears eyes nose clear. Eyebrow raise smile face symmetrical. Tongue is midline. Neck is supple with no lymphadenopathy. Heart with a regular rate and rhythm. 2/6 systolic murmur noted left upper sternal border. Not harsh. Lungs are with decreased breath sounds in the bases but no crackles. Abdomen soft nontender. No pulsating mass. Lower extremities show no edema. Range of motion of extremities intact and strength is also intact. 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 However, this is symmetrical. Const: Vital Signs, click to edit/add: Vital Signs - 24 hr 03/15/25 10:30 03/15/25 10:31 03/15/25 10:31 Temperature 98 F Pulse Rate 71 Pulse Rate [Right Pulse Oximeter] 70 Pulse Rate [orthos tatic lying] Pulse Rate [orthos tatic sitting] Pulse Rate [orthos tatic standing] Respiratory Rate 18 Blood Pressure 171/70 H Blood Pressure [Ri ght Upper Arm] 178/103 H Blood Pressure [or thostatic lying] Blood Pressure [or thostatic sitting] Blood Pressure [or thostatic standing ] Pulse Oximetry 98 99 [facility] 03/15/25 10:32 03/15/25 10:43 03/15/25 10:45 Temperature Pulse Rate 69 71 73 Pulse Rate [Right Pulse Oximeter] Pulse Rate [orthos tatic lying] Pulse Rate [orthos tatic sitting] Pulse Rate [orthos tatic standing] Respiratory Rate 16 Blood Pressure 175/103 H 152/82 H Blood Pressure [Ri ght Upper Arm] Blood Pressure [or thostatic lying] Blood Pressure [or thostatic sitting] Blood Pressure [or thostatic standing ] Pulse Oximetry 98 97 Oxygen Delivery Ga thod 03/15/25 11:00 03/15/25 11:03 03/15/25 11:05 Temperature Pulse Rate Pulse Rate [Right Pulse Oximeter] Pulse Rate [orthos tatic lying] Pulse Rate [orthos tatic sitting] Pulse Rate [orthos tatic standing] Respiratory Rate 23 16 24 Blood Pressure Blood Pressure [Ri ght Upper Arm] Blood Pressure [or thostatic lying] Blood Pressure [or thostatic sitting] Blood Pressure [or thostatic standing ] Pulse Oximetry Oxygen Delivery Me thod 03/15/25 11:08 03/15/25 11:16 03/15/25 11:30 Temperature Pulse Rate Pulse Rate [Right Pulse Oximeter] Pulse Rate [orthos tatic lying] Pulse Rate [orthos tatic sitting] Pulse Rate [orthos tatic standing] Respiratory Rate 22 16 14 Blood Pressure 158/124 H Blood Pressure [Ri ght Upper Arm] Blood Pressure [or thostatic lying] Blood Pressure [or thostatic sitting] Blood Pressure [or thostatic standing ] Pulse Oximetry Oxygen Delivery Me thod 03/15/25 11:32 03/15/25 11:34 03/15/25 11:35 Temperature Pulse Rate Pulse Rate [Right Pulse Oximeter] Pulse Rate [orthos tatic lying] Pulse Rate [orthos tatic sitting] Pulse Rate [orthos tatic standing] Respiratory Rate 33 H 35 H 7 L Blood Pressure 162/78 H 149/81 H 120/72 Blood Pressure [Ri ght Upper Arm] Blood Pressure [or thostatic lying] Blood Pressure [or thostatic sitting] Blood Pressure [or thostatic standing ] Pulse Oximetry Oxygen Delivery Ga thod 03/15/25 11:37 03/15/25 11:45 03/15/25 12:00 Temperature Pulse Rate Pulse Rate [Right Pulse Oximeter] Pulse Rate [orthos tatic lying] 63 Pulse Rate [orthos tatic sitting] 70 Pulse Rate [orthos tatic standing] 80 Respiratory Rate 14 22 Blood Pressure Blood Pressure [Ri ght Upper Arm] Blood Pressure [or thostatic lying] 162/78 H Blood Pressure [or thostatic sitting] 149/81 H Blood Pressure [or thostatic standing ] 120/72 Pulse Oximetry [facility] 03/15/25 12:03 03/15/25 12:15 03/15/25 12:23 Temperature Pulse Rate Pulse Rate [Right Pulse Oximeter] Pulse Rate [orthos tatic lying] Pulse Rate [orthos tatic sitting] Pulse Rate [orthos tatic standing] Respiratory Rate 22 20 15 Blood Pressure 151/84 H 154/108 H Blood Pressure [Ri ght Upper Arm] Blood Pressure [or thostatic lying] Blood Pressure [or thostatic sitting] Blood Pressure [or thostatic standing ] Pulse Oximetry [facility] 03/15/25 12:30 03/15/25 12:42 03/15/25 12:45 Temperature Pulse Rate Pulse Rate [Right Pulse Oximeter] Pulse Rate [orthos tatic lying] Pulse Rate [orthos tatic sitting] Pulse Rate [orthos tatic standing] Respiratory Rate 17 16 24 Blood Pressure 166/86 H Blood Pressure [Ri ght Upper Arm] Blood Pressure [or thostatic lying] Blood Pressure [or thostatic sitting] Blood Pressure [or thostatic standing ] Pulse Oximetry [facility] 03/15/25 13:00 03/15/25 13:02 03/15/25 13:15 Temperature Pulse Rate Pulse Rate [Right Pulse Oximeter] Pulse Rate [orthos tatic lying] Pulse Rate [orthos tatic sitting] Pulse Rate [orthos tatic standing] Respiratory Rate 27 H 26 H 17 Blood Pressure 151/123 H Blood Pressure [Ri ght Upper Arm] Blood Pressure [or thostatic lying] Blood Pressure [or thostatic sitting] Blood Pressure [or thostatic standing ] Pulse Oximetry Oxygen Delivery Me thod 03/15/25 13:30 03/15/25 13:45 03/15/25 14:07 Temperature Pulse Rate Pulse Rate [Right Pulse Oximeter] Pulse Rate [orthos tatic lying] Pulse Rate [orthos tatic sitting] Pulse Rate [orthos tatic standing] Respiratory Rate 22 28 H 22 Blood Pressure Blood Pressure [Ri ght Upper Arm] Blood Pressure [or thostatic lying] Blood Pressure [or thostatic sitting] Blood Pressure [or thostatic standing ] Pulse Oximetry Oxygen Delivery Me thod 03/15/25 14:30 03/15/25 14:45 03/15/25 15:00 Temperature Pulse Rate Pulse Rate [Right Pulse Oximeter] Pulse Rate [orthos tatic lying] Pulse Rate [orthos tatic sitting] Pulse Rate [orthos tatic standing] Respiratory Rate 14 16 27 H Blood Pressure Blood Pressure [Ri ght Upper Arm] Blood Pressure [or thostatic lying] Blood Pressure [or thostatic sitting] Blood Pressure [or thostatic standing ] Pulse Oximetry Oxygen Delivery Me thod 03/15/25 15:15 03/15/25 15:24 03/15/25 15:25 Temperature Pulse Rate Pulse Rate [Right Pulse Oximeter] Pulse Rate [orthos tatic lying] Pulse Rate [orthos tatic sitting] Pulse Rate [orthos tatic standing] Respiratory Rate 13 19 Blood Pressure 158/85 H Blood Pressure [Ri ght Upper Arm] Blood Pressure [or thostatic lying] Blood Pressure [or thostatic sitting] Blood Pressure [or thostatic standing ] Pulse Oximetry 96 Oxygen Delivery Me thod Room Air Documenting provider has reviewed patient's vital signs: yes Course Course ED Course: Differential diagnosis includes but is not limited to acute coronary event, cardiac arrhythmia, aortic dissection, vasovagal event, underlying infection. Will place patient on hospital monitor and oximetry. Will place an IV and draw labs to include CBC, comprehensive, troponin, D-dimer, urinalysis. Will also order chest x-ray as well as orthostatic vital signs. Reevaluation(s) Reevaluation #1: Patient noted to be orthostatic and 500 mL of normal saline was given. Reevaluation #2: Patient noted to have chest x-ray with increased lung markings thought to be possible developing infiltrates or pulmonary edema. The pulmonary edema and fluid overload state would contradict the positive orthostatic vital signs and potential fluid depleted state. We have also had a D-dimer greater than 20. This raises concerns regarding possible aortic dissection or other ongoing process and therefore I recommend CT PE study of the chest with contrast study also of the abdomen and pelvis. Patient has no chest pain at this time. Consultations Consultation #1: I have asked Dr. Espino, hospitalist, to consult on this case. This gentleman has had negative PE study, negative troponin, no evidence of cardiac arrhythmia, and reassuring vital signs and yet was orthostatic and had near-syncope. No evidence of a new murmur that is harsh. Further differential includes possibly aortic stenosis. Dr. Espino is wondering about lung disease causing some pulmonary hypertension as well. At this time she suggest a ZIO patch and follow-up for echo, pulmonary consult with low threshold for return to this hospital. Please see her note. Vital Signs Vital signs: Initial Vital Signs Blood Pressure 171/70 H 03/15/25 10:30 Blood Pressure Mean 103 03/15/25 10:30 Vital Signs Blood Pressure 171/70 H 03/15/25 10:30 Temperature 98 F 03/15/25 10:31 Pulse Rate 63 03/15/25 11:37 Respiratory Rate 19 03/15/25 15:24 Blood Pressure 158/85 H 03/15/25 15:24 Pulse Oximetry 96 03/15/25 15:25 Oxygen Delivery Method Room Air 03/15/25 15:25 Medications Administered Medications: Discontinued Medications Generic Name Dose Route Start Last Admin Trade Name Freq PRN Reason Stop Dose Admin Sodium Chloride 500 mls @ 500 mls/hr 03/15/25 12:54 03/15/25 13:19 0.9 % Sodium Chloride 500 Ml IV 03/15/25 13:53 Infused .Q1H MIKY Infusion MDM - Syncope MDM Narrative Medical decision making narrative: 1. Near syncopal episode-no evidence of cardiac arrhythmia, acute coronary event with 2 negative troponins, aortic dissection on CT. At this time possibilities do include vasovagal reaction, pulmonary hypertension, cardiac arrhythmia. I did ask for hospitalist consult in regards to this patient. Patient will be placed on ZIO patch and will follow-up with primary MD for pulmonary referral and echocardiogram. He will need to return to the ER for worsening symptoms or recurrent symptoms. 2. Pulmonary edema-Dr. Espino feels that this may be lung disease rather than true pulmonary edema with a proBNP of 440. No evidence of pneumonia noted. O2 sats have been reassuring during his visit. 3. Elevated D-yrxjy-xswylay does have history of are a but no other evidence of pneumonia. Urine is without infection. Abdominal CT without infection. No evidence of aortic dissection. 4. Disposition-Patient will be going home with his daughter and lives with his . He feels comfortable going home at this time with our plan. I have asked him to return for any recurrent symptoms. Medical Records Attestation: I reviewed the patient's medical records. Lab Data Attestation: I reviewed the patient's lab results. Labs: Lab Results 03/15/25 03/15/25 03/15/25 Range/Units 11:04 11:20 11:40 WBC 6.08 (4.50-11.00) K/uL RBC 3.94 L (4.30-5.90) m/uL Hgb 11.9 L (13.5-17.5) gm/dL Hct 36.1 L (37.0-53.0) % MCV 92 (80-100) fL MCH 30 (26-34) pg MCHC 33 (32-36) gm/dL RDW Coeff of Uziel 14.2 (11.5-15.5) % Plt Count 305 (140-440) K/uL Neut % (Auto) 68.9 (42.0-72.0) % Lymph % (Auto) 18.1 L (20-44) % [facility] % (Auto) 10.4 (0.0-11.0) % Eos % (Auto) 1.8 (0.0-7.0) % Baso % (Auto) 0.5 (0.0-3.0) % Neut # (Auto) 4.19 (1.7-7.0) K/uL Lymph # (Auto) 1.10 (0.90-2.90) K/uL [facility] # (Auto) 0.60 (0.00-0.90) K/UL Eos # (Auto) 0.11 (0.00-0.50) K/uL Baso # (Auto) 0.03 (0.00-0.30) K/uL Abs Immat Gran (auto) 0.02 (0.00-0.30) K/uL Imm/Tot Granulo (auto) 0.3 % D-Dimer Quant (PE/DVT) > 20.00 H (0.00-0.50) ug/ml Sodium 135 (135-149) mmol/L Potassium 4.3 (3.6-5.1) mmol/L Chloride 101 (96-114) mmol/L Carbon Dioxide 26 (20-32) mmol/L Anion Gap 8 (7-15) mEq/L BUN 15 (7-30) mg/dL Creatinine 0.8 (0.5-1.5) mg/dL Estimated GFR 86 ml/min Glucose 127 H (60-115) mg/dL Calcium 9.5 (8.4-10.6) mg/dL Magnesium 2.1 (1.5-2.6) mg/dL Total Bilirubin 0.3 (0.1-1.5) mg/dL AST 25 (12-35) U/L ALT 13 (4-50) U/L Alkaline Phosphatase 49 (40-150) U/L C-Reactive Protein 1.2 H (0.5-1.0) mg/dL NT-Pro-B Natriuret Pep 440 H (See Note) pg/mL Total Protein 8.2 (6.0-8.3) g/dL Albumin 4.4 (3.3-5.0) g/dL Urine Color Yellow (Yellow) Urine Appearance Slightly Cloudy A (Clear) Urine pH 7.5 (5.0-8.5) Ur Specific [place] 1.020 (1.000-1.030) Urine Protein 1+ A (Negative) Urine Glucose (UA) Negative (Negative) Urine Ketones Negative (Negative) Urine Blood Negative (Negative) Urine Nitrite Negative (Negative) Urine Bilirubin Negative (Negative) Urine Urobilinogen 0.2 (0.2-1.0) Ur Leukocyte Esterase Negative (Negative) Urine RBC 0-2 (0-2) Urine WBC 0-2 (0-5) Ur Squamous Epith Cells Few (None-Few) Amorphous Sediment Few A (None) Urine Bacteria Few A (None) Urine Mucus Moderate A (None) Lab Acknowledgement POC Troponin I 0.00 L (0.01-0.04) ng/ml 03/15/25 03/15/25 Range/Units 14:36 14:45 WBC (4.50-11.00) K/uL RBC (4.30-5.90) m/uL Hgb (13.5-17.5) gm/dL Hct (37.0-53.0) % MCV (80-100) fL MCH (26-34) pg MCHC (32-36) gm/dL RDW Coeff of Uziel (11.5-15.5) % Plt Count (140-440) K/uL Neut % (Auto) (42.0-72.0) % Lymph % (Auto) (20-44) % [facility] % (Auto) (0.0-11.0) % Eos % (Auto) (0.0-7.0) % Baso % (Auto) (0.0-3.0) % Neut # (Auto) (1.7-7.0) K/uL Lymph # (Auto) (0.90-2.90) K/uL [facility] # (Auto) (0.00-0.90) K/UL Eos # (Auto) (0.00-0.50) K/uL Baso # (Auto) (0.00-0.30) K/uL Abs Immat Gran (auto) (0.00-0.30) K/uL Imm/Tot Granulo (auto) % D-Dimer Quant (PE/DVT) (0.00-0.50) ug/ml Sodium (135-149) mmol/L Potassium (3.6-5.1) mmol/L Chloride (96-114) mmol/L Carbon Dioxide (20-32) mmol/L Anion Gap (7-15) mEq/L BUN (7-30) mg/dL Creatinine (0.5-1.5) mg/dL Estimated GFR ml/min Glucose (60-115) mg/dL Calcium (8.4-10.6) mg/dL Magnesium (1.5-2.6) mg/dL Total Bilirubin (0.1-1.5) mg/dL AST (12-35) U/L ALT (4-50) U/L Alkaline Phosphatase (40-150) U/L C-Reactive Protein (0.5-1.0) mg/dL NT-Pro-B Natriuret Pep (See Note) pg/mL Total Protein (6.0-8.3) g/dL Albumin (3.3-5.0) g/dL Urine Color (Yellow) Urine Appearance (Clear) Urine pH (5.0-8.5) Ur Specific [place] (1.000-1.030) Urine Protein (Negative) Urine Glucose (UA) (Negative) Urine Ketones (Negative) Urine Blood (Negative) Urine Nitrite (Negative) Urine Bilirubin (Negative) Urine Urobilinogen (0.2-1.0) Ur Leukocyte Esterase (Negative) Urine RBC (0-2) Urine WBC (0-5) Ur Squamous Epith Cells (None-Few) Amorphous Sediment (None) Urine Bacteria (None) Urine Mucus (None) Lab Acknowledgement Test Added POC Troponin I 0.01 (0.01-0.04) ng/ml Imaging Data Chest x-ray: Attestation: I have reviewed the pertinent imaging results. My impression: I do not note any Radiologist's impression: There are extensive interstitial markings seen throughout the bilateral hemithoraces. No pneumothorax or pleural effusion. Questionable superimposed airspace opacities within the right upper lobe. The cardiomediastinal silhouette is within normal limits. The bony thorax is grossly intact. Impression: Diffusely increased interstitial markings which may represent pulmonary edema and/or superimposed chronic fibrotic changes. Subtle airspace opacities within the right upper lobe are appreciated which may represent developing infiltrates. CT scan - chest: Attestation: I have reviewed the pertinent imaging results. My impression: I do not note any PE. Radiologist's impression: Pulmonary Arterial Vasculature: Opacification of the pulmonary arterial tree is adequate for assessment of pulmonary embolism. No pulmonary embolism. Visualized Lower Neck: No lower cervical adenopathy. Lungs: Bilateral lower lobe posterior segment segmental and subsegmental bronchial wall thickening consistent with nonspecific bronchitis. Bilateral symmetrical basilar predominant subpleural reticulation, subsegmental traction bronchiectasis and mild right lower lobe honeycombing consistent with a UIP pattern. No focal consolidation in either lung to indicate bronchopneumonia. Findings of pulmonary edema. Pleura: No pleural effusion. No pneumothorax. Mediastinum: Limited evaluation of the thoracic aorta due to timing of imaging relative to contrast bolus administration. No thoracic aortic aneurysm, intraluminal dissection flap or intramural hematoma. Cardiomegaly. Moderate diffuse left anterior descending and circumflex coronary artery atherosclerotic calcification. Trachea and esophagus are normal in appearance. No mediastinal lymphadenopathy. SKELETON AND BODY WALL Bilateral symmetrical gynecomastia. ABDOMEN Please refer to the separate abdominopelvic CT report from the same day for findings related to the abdomen. IMPRESSION: 1. No evidence of pulmonary embolism. 2. Limited evaluation of the thoracic aorta due to timing of imaging relative to contrast bolus administration. No thoracic aortic aneurysm, intraluminal dissection flap or intramural hematoma. 3. No other findings to explain the clinical history of back pain and near- syncope. 4. Incidental findings as above. 5. Please refer to the separate abdominopelvic CT report from the same day for findings related to the abdomen. CT scan - abdomen: Attestation: I have reviewed the pertinent imaging results. My impression: No obvious cholecystitis, abscess, acute abnormalities. Radiologist's impression: NB: Timing of imaging relative to contrast bolus administration limits assessment of the abdominopelvic viscera and venous vasculature on this arterial phase CT angiogram. Abdominal Aorta: No aneurysm, intramural hematoma, penetrating atherosclerotic ulcer, or dissection. Mild chronic aortoiliac atherosclerotic mural calcification. Abdominal aorta and its major proximal branches including the celiac, superior mesenteric, inferior mesenteric, renal, and bilateral common iliac arteries are patent. Liver: Normal contour and attenuation. No significant focal lesion. No intrahepatic biliary ductal dilatation. Portal and hepatic veins are incompletely/not enhanced on this arterial phase CT angiogram. Gallbladder: Normal size. No pericholecystic inflammatory changes. Normal common duct caliber. Pancreas: Normal contour and attenuation. No peripancreatic inflammatory changes. No significant focal lesion. Normal main duct caliber. Spleen: Not enlarged. No significant focal lesion. The splenic vein is not enhanced on this arterial phase CT angiogram. Adrenal Glands: Symmetrical adrenal glands. No significant focal lesion. Kidneys: Normal bilateral renal attenuation. No significant focal lesion. No nephrolith. No dilatation of the intrarenal collecting systems. No ureteral stone. Nondilated ureters. Renal veins are not enhanced on this arterial phase CT angiogram. Gastrointestinal tract: Normal caliber, attenuation and wall thickness of the gastrointestinal tract. No inflammatory changes. Normal small bowel mesentery. Normal appendix. Vascular: Inferior vena cava, portal and superior mesenteric veins are not opacified on this arterial phase CT angiogram and therefore their patency and caliber cannot be determined. Peritoneal Cavity/Retroperitoneum: No ascites. No adenopathy. PELVIS No bladder lesion is identified. No significant incidental findings related to the prostate or seminal vesicles. No significant ascites. No adenopathy. SKELETON [employer] BODY WALL No acute or significant incidental findings. IMPRESSION: 1. No abdominal aortic aneurysm, intramural hematoma, penetrating atherosclerotic ulcer, or dissection. 2. No other findings to explain the clinical history. 3. Please refer to the separate chest CT report from the same day for findings related to the thorax. ECG Data Attestation: I personally reviewed and interpreted this ECG as follows: ECG interpretation date: 03/15/25 Interpretation: EKG by my read shows a sinus rhythm at 68. Somewhat wide QRS complex at 118 milliseconds. Poor R-wave progression noted. However, essentially unchanged from 2023. Discharge Plan Discharge Clinical Impression: Near syncope, Orthostatic hypotension Patient Disposition: Home, Self-Care Condition: Improved Additional Instructions: ZIO patch to go home with. Follow-up with Dr. Tejada for scheduling of echocardiogram, further follow-up and results of ZIO patch. Also suggest referral to pulmonology to evaluate possible lung inflammation/disease. Return to the ER for worsening symptoms, recurrent symptoms and as needed. Prescriptions: No Action metoprolol succinate 50 mg tablet extended release 24 hr 50 mg PO DAILY alendronate 70 mg tablet 70 mg PO methotrexate sodium 2.5 mg tablet 20 mg PO pantoprazole 40 mg tablet,delayed release (DR/EC) 40 mg PO DAILY diclofenac sodium 1 % gel 2 g topical QID Rx Instructions: apply to single elbow, wrist or hand; for hand includes palm/fingers/back of hand Follow Up/Referrals: Jonah Tejada MD [Primary Care Provider, Family Practice] Stand Alone Forms: [employer] Info Instructions
--- NOTE | 2025-03-15 11:04 | CRLHL7_ITS ---
For Patients: As a result of the Cures Act, medical imaging exams and procedure reports are released immediately into your electronic medical record. You may view this report before your referring provider. If you have questions, please contact your health care provider. Indication: Syncope Comparison: None available. Technique: Single AP view chest Findings: There are extensive interstitial markings seen throughout the bilateral hemithoraces. No pneumothorax or pleural effusion. Questionable superimposed airspace opacities within the right upper lobe. The cardiomediastinal silhouette is within normal limits. The bony thorax is grossly intact. Impression: Diffusely increased interstitial markings which may represent pulmonary edema and/or superimposed chronic fibrotic changes. Subtle airspace opacities within the right upper lobe are appreciated which may represent developing infiltrates. Dictated by Mauri Alaniz MD @ 03/15/2025 11:29:38 AM (Electronically Signed)
--- OUTSIDE RECORDS SUMMARY | 2025-03-15 11:11 | XMS_ITS | Data Portability ---
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 Plan of Treatment Reminders Order Date Submit Date Provider Last Modified By Organization Details Last Modified Time Details Appointments PSA 10 2024 10:20A M [facility] Not available Not available Not available ESTABLI SHED 10 2024 10:30A M Naeem Mancilla MD Not available Not available Not available Lab PSA, serum or plasma 2024 025 [email or web address] [facility], [address], [place], [address], 10/09/2024 16:53:51 PSA, serum or plasma 2023 024 [email or web address] [facility], [address], [place], [address], 04/10/2024 16:00:46 PSA, serum or plasma 2023 024 [email or web address] [facility], [address], [place], [address], 09/20/2023 15:19:38 PSA, serum or plasma 2022 023 [email or web address] [facility], [address], [place], [address], 03/11/2023 14:01:16 PSA, serum or plasma 2022 023 [facility]i, [address], [place], [address], 08/05/2022 15:30:37 Referral None recorde d. Procedures None recorde d. Surgeries None recorde d. Imaging None recorde d. Medication Orders Eligard 45 mg (6 month) subcuta neous syringe [address], [place], [place], [address] [place], [address], 10/09/2024 16:53:51 Eligard 45 mg (6 month) subcuta neous syringe [address] [facility], [place], [address] [place], [address], 04/10/2024 16:00:46 Eligard 45 mg (6 month) subcuta neous syringe 2023 024 [facility], [place], [place], [address] [place], [address], 09/20/2023 15:31:20 Eligard 45 mg (6 month) subcuta neous syringe 2022 [email or web address] [place], [address] [place], [address], 03/11/2023 14:24:29 Eligard 45 mg (6 month) subcuta neous syringe 2022 023 [facility], [place], [address] [place], [address], 08/05/2022 15:53:27 Patient TargetsNo targets recorded. Patient InstructionsNo instructions recorded. Reason for Referral None Reported. Results Created Date Observation Date Name Description Value Unit Range Abnormal Flag Note LastModifiedBy Organization Detail LastModifiedTime 08/06/1908/05/2022 PSA, serum or plasm a PSA 0.33 ng/mL 0-4.0 Not Available [facility] [address], [place], [address], 08/05/2022 15:30:12 03/11/20 23 03/11/2023 PSA, serum or plasm a PSA 0.34 ng/ml 0-4.0 Not Available [facility] [address], [place], [address], 03/11/2023 13:59:50 09/20/19 24 09/20/2023 PSA, serum or plasm a PSA 0.09 ng/mL 0-4.0 NG/mL Not Available [facility] [address], [place], [address], 09/20/2023 15:18:42 04/10/20 24 04/10/2024 PSA, serum or plasm a PSA 0.11 ng/mL 0-4.0 NG/mL Not Available [facility] [address], [place], [address], 04/07/2024 10:48:22 10/10/19 25 10/09/2024 PSA, serum or plasm a PSA 0.13 ng/mL 0-4.0 NG/mL Not Available [facility] [address], [place], [address], 09/29/2024 17:28:27 Result Notes None recorded. Procedures Surgical History Date Name Laterality Status Provider Name and Address Organization Details Recorded Time 10/10/19 25 COMPLEX VISIT completed Naeem Mancilla MD [address], [place], [address], [facility] 10/09/2024 17:54:41 10/10/19 25 Blood Draw/FILM REPLACEMENT ORDERER/PSA RESULTS completed Jackelyn Kimble [facility] 10/09/2024 16:08:59 10/10/19 25 Isis completed Jackelyn Kimble [facility] 10/09/2024 16:53:15 04/10/20 24 COMPLEX VISIT completed Naeem Mancilla MD [address], [place], [address] 04/10/2024 09:42:51 04/10/20 24 Blood Draw/FILM REPLACEMENT ORDERER/PSA RESULTS completed Jackelyn Kimble [facility] 04/10/2024 15:37:50 04/10/20 24 Eligeno completed Jackelyn Kimble [facility] 04/10/2024 16:01:38 12/29/19 24 liposuction of subcutaneous tissue completed Jackelyn Kimble [facility] 04/10/2024 15:38:13 09/20/19 24 COMPLEX VISIT completed Naeem Mancilla MD [address], [place], [address] [place] [address] 09/21/2023 00:23:35 09/20/19 24 Blood Draw/FILM REPLACEMENT ORDERER/PSA RESULTS completed Jackelyn Barnett [facility] 09/20/2023 15:19:46 09/20/19 24 Isis completed Jackelyn Barnett [facility] 09/20/2023 15:29:31 03/11/20 23 Blood Draw/FILM REPLACEMENT ORDERER/PSA RESULTS completed Nisha Kim [facility] 03/11/2023 13:59:43 03/11/20 23 Isis completed Nisha Kim [facility] 03/11/2023 14:23:28 08/06/19 23 Blood Draw/FILM REPLACEMENT ORDERER/PSA RESULTS completed Jackelyn Barnett [facility] 08/05/2022 15:30:09 08/06/19 23 Isis completed Jackelyn Barnett [facility] 08/05/2022 15:51:54 02/05/20 22 Blood Draw/FILM REPLACEMENT ORDERER/PSA RESULTS completed Jackelyn Barnett [facility] 02/04/2022 16:07:27 Imaging Results None recorded. Procedure Notes None recorded. Medical Equipment None Reported. Allergies Allergen ID Allergen Name Allergen Category Reaction Reaction Severity Criticality Documentation Date Start Date Code Code System Note Provider Name and Address Organization Details Recorded Time 808262 acetamino phen / oxycodone medicatio n Not available Not available Not available 11/16/20192019 88326 3 [facility] 00:[facility]27 387128 lisinopri l medicatio n cough Not available low 10/09/20242020 04207 RxNorm [facility] 16:07:53 Medications Name Sig Start Date Stop Date Status Note LastModified by Organization Details LastModified Time amoxicillin 500 mg capsule TAKE 1 CAPSULE BY MOUTH THREE TIMES A DAY UNTIL GONE 02/04 completed Not Available Not Available Not Available metoprolol succinate ER 50 mg tablet,exte nded release 24 hr TAKE ONE TABLET BY MOUTH EVERY DAY active Not Available Not Available No t Available hydrocodone 5 mg-acetamin ophen 325 mg tablet TAKE ONE TABLET BY MOUTH EVERY 4 TO 6 HOURS NEEDED FOR PAIN 04/10 completed Not Available Not Available Not Available alendronate 70 mg tablet TAKE ONE TABLET BY MOUTH ONCE A WEEK IN THE MORNING. TAKE ON EMPTY STOMACH WITH FULL GLASS OF WATER. DO NOT LIE DOWN FOR ONE HOUR. TAKE ON S 09/19 completed Not Available Not Available Not Available prednisolon e acetate 1 % eye drops,suspe nsion PLEASE SEE ATTACHED FOR DETAILED DIRECTION S 03/11 completed Not Available Not Available Not Available methotrexat e sodium 2.5 mg tablet TAKE 8 TABLETS BY MOUTH ONCE A WEEK active Not Available Not Available No t Available cephalexin 500 mg capsule TAKE ONE CAPSULE BY MOUTH THREE TIMES A DAY 04/10 completed Not Available Not Available Not Available pantoprazol e 40 mg tablet,yvette yed release TAKE ONE TABLET BY MOUTH EVERY DAY BEFORE A MEAL active Not Available Not Available No t Available gabapentin 300 mg capsule TAKE 1 CAPSULE BY MOUTH THE NIGHT BEFORE PROCEDURE THEN TAKE 1 CAPSULE THE MORNING OF PROCDURE PRIOR TO ARRIVING TO CLINIC 04/10 completed Not Available Not Available Not Available atropine 1 % eye drops 03/11 completed Not Available Not Available Not Available ondansetron 4 mg disintegrat ing tablet DISSOLVE ONE TABLET BY MOUTH EVERY 4 TO 6 HOURS 04/10 completed Not Available Not Available Not Available neomycin 3.5 mg/g-polymy imelda B 10,000 unit/g-dexa meth 0.1 % eye oint APPLY SMALL AMOUNT TO INFERIOR CUL DE SAC OF LEFT EYE EVERY 3 HOURS WHILE AWAKE 03/11 completed Not Available Not Available Not Available Eligard 45 mg (6 month) subcutaneou s syringe Inject 45 mg by subcutane ous route. 2024 active Not Available Not Available Not Avai lable chlorhexidi ne gluconate 0.12 % mouthwash SWISH AND SPIT 15ML BY MOUTH TWICE A DAY FOR 7 DAYS 02/04 completed Not Available Not Available Not Available Tylenol 04/10 completed Not Available Not Available Not Available Vitamin B12 active Not Available Not A vailable Not Available Golytely 236 gram-22.74 gram-6.74 gram-5.86 gram oral solution DRINK 3 LITERS (3/4 OF BOTTLE) THE DAY PRIOR TO COLONOSCO PY AND 1 LITER (REMAININ G 1/4 OF BOTTLE) 6 HOURS PRIOR TO COLONOSCO PY APPOINTME NT 02/04 completed Not Available Not Available Not Available Calcium with Vit D3 600 mg (as carbonate)- 12.5 mcg (500 unit) capsule Take by oral [...] Updated DateTime 08/05/2022 170.18 cm 25.1 kg/m2 32286.78 g Jackelyn Barnett [facility] 08/05/2022 15:29:43 Date Recorded Body height Body mass index (BMI) Body weight Provider Name and Address Organization Details Last Updated DateTime 09/20/2023 170.18 cm 25.1 kg/m2 47424.78 g Jackelyn Barnett [facility] 09/20/2023 14:40:26 Date Recorded Body height Body mass index (BMI) Body weight Provider Name and Address Organization Details Last Updated DateTime 10/09/2024 170.18 cm 25.8 kg/m2 34008.74 g Jackelyn Kimble [facility] 10/09/2024 16:07:46 Date Recorded Body height Body mass index (BMI) Body weight Provider Name and Address Organization Details Last Updated DateTime 03/11/2023 170.18 cm 25.1 kg/m2 96712.78 g Nishacrow Xiongdemar [facility] 03/11/2023 13:59:10 Date Recorded Body height Body mass index (BMI) Body weight Provider Name and Address Organization Details Last Updated DateTime 04/10/2024 170.18 cm 25.8 kg/m2 23455.74 g Jackelynuyen Kimble [facility] 04/10/2024 15:36:14 Social History Question Answer Notes LastModified by [employer] Details LastModified Time Tobacco Smoking Status [facility] 16:01:40 What Is Your Level Of Caffeine Consumption? Moderate Information not available 02/04/2022 When Did You Quit Smoking? 16+yearssince lastcigarette Information not available 02/04/2022 Recreational Drug Use No Information not available 02/04/2022 What Was The Date Of Your Most Recent Tobacco Screening? 10/09/2024 [email or web address] Information not available 10/09/2024 Have You Ever Been Counseled For Unhealthy Alcohol Use? No Information not available 09/20/2023 What Is Your Relationship Status? Information not available 02/04/2022 Has Tobacco Cessation Counseling Been Provided? No Information not available 02/04/2022 How Many Years Have You Smoked Tobacco? 6 Information not available 02/04/2022 How Many Days In The Past Year Have You Consumed 5 Or More Drinks? 0 Information no t available 09/20/2023 Sex: Unknown Functional Status Question Answer Note LastModified by [employer] Details LastModified Time Do you use any illicit or recreational drugs? No Information not available 02/04/2022 Do you or have you ever used any other forms of tobacco or nicotine? No Information not available 02/04/2022 What is your level of alcohol consumption? Occasional Information not available 02/04/2022 Are you currently employed? No Information not available 02/04/2022 Mental Status None recorded. Family History Nothing Reported. Medical History Condition Response Sexually Transmitted Infection N Diabetes N Other Y Bleeding Disorder N High Blood Pressure Y Kidney Stones N High Cholesterol N GERD/Acid Reflux N Heart Disease N Cancer Y Depression N Lung Disease N Immunizations Vaccine Type Date Status Note Provider Nam e and Address Organization Details Recorded Time Influenza, high-dose, quadrivalent, PF 2 completed Jackelyn Barnett null, [facility] 09/20/2023 14:40:32 COVID-19, mRNA, LNP-S, bivalent, PF, 30 mcg/0.3 mL dose 2 completed Jackelyn Barnett null, [facility] 09/20/2023 14:40:32 Tdap 2 completed Jackelyn Barnett null, [facility] 09/20/2023 14:40:32 COVID-19, mRNA, LNP-S, bivalent, PF, 50 mcg/0.5 mL or 25mcg/0.25 mL dose 3 completed Not Available [facility] 10/09/2024 15:19:51 Influenza, high-dose, quadrivalent, PF 3 completed Not Available [facility] 10/09/2024 15:19:51 COVID-19, mRNA, LNP-S, PF, geno-sucrose, 30 mcg/0.3 mL 3 completed Not Available [facility] 10/09/2024 15:19:51 COVID-19, mRNA, LNP-S, PF, 50 mcg/0.5 mL 4 completed Not Available [facility] 10/09/2024 15:19:51 COVID-19, mRNA, LNP-S, PF, 50 mcg/0.5 mL 4 completed Not Available [facility] 10/09/2024 15:19:51 Influenza, high-dose, trivalent, PF 4 completed Not Available [facility] 10/09/2024 15:19:51 COVID-19, mRNA, LNP-S, PF, 50 mcg/0.5 mL 5 completed Not Available [facility] 10/09/2024 15:19:51 Influenza, adjuvanted, trivalent, PF 7 completed Nisha Xiongrbauer null, [facility] 03/11/2023 13:59:15 Influenza, adjuvanted, trivalent, PF 8 completed Nisha Osterbauer null, [facility] 03/11/2023 13:59:15 zoster recombinant 9 completed Nisha Osterbauer null, [facility] 03/11/2023 13:59:15 Influenza, adjuvanted, quadrivalent, PF 0 completed Nisha Herreraauer null, [facility] 03/11/2023 13:59:15 Influenza, adjuvanted, quadrivalent, PF 1 completed Nisha Herreraauer null, [facility] 03/11/2023 13:59:15 COVID-19, mRNA, LNP-S, PF, 30 mcg/0.3 mL dose 1 completed Nisha Herreraauer null, [facility] 03/11/2023 13:59:16 COVID-19, mRNA, LNP-S, PF, 30 mcg/0.3 mL dose 1 completed Nisha Herreraauer null, [facility] 03/11/2023 13:59:16 COVID-19, mRNA, LNP-S, PF, 30 mcg/0.3 mL dose 1 completed Nisha Herreraauer null, [facility] 03/11/2023 13:59:16 Pneumococcal conjugate PCV20, polysaccharide [id number] conjugate, adjuvant, PF 2 completed Nisha Herreraauer null, [facility] 03/11/2023 13:59:16 COVID-19, mRNA, LNP-S, PF, 30 mcg/0.3 mL dose, geno-sucrose 2 completed Nisha Herreraauer null, [facility] 03/11/2023 13:59:16 Tdap 1 completed Nisha Herreraauer null, [facility] 03/11/2023 13:59:16 Novel [id number], all formulations 0 completed Nisha Kim null, [facility] 03/11/2023 13:59:16 Pneumococcal conjugate PCV 13 5 completed Nisha Kim null, [facility] 03/11/2023 13:59:16 Pneumococcal conjugate PCV 13 6 completed Nisha Kim null, [facility] 03/11/2023 13:59:16 zoster live 8 completed Nisha Kim null, [facility] 03/11/2023 13:59:16 Influenza, high-dose, trivalent, PF 9 completed Nisha Kim null, [facility] 03/11/2023 13:59:16 Influenza, high-dose, trivalent, PF 6 completed Nisha vides, [facility] 03/11/2023 13:59:16 Influenza, high-dose, trivalent, PF 4 completed Nisha Kim null, [facility] 03/11/2023 13:59:16 Influenza, high-dose, trivalent, PF 5 completed Nisha Kim null, [facility] 03/11/2023 13:59:16 Influenza, split virus, trivalent, preservative 3 completed Nisha vides, [facility] 03/11/2023 13:59:16 Influenza, split virus, trivalent, preservative 2 completed Nisha Kim null, [facility] 03/11/2023 13:59:16 Influenza, split virus, trivalent, preservative 9 completed Nisha Kim null, [facility] 03/11/2023 13:59:16 Influenza, split virus, trivalent, preservative 0 completed Nisha Kim null, [facility] 03/11/2023 13:59:16 Influenza, split virus, trivalent, preservative 5 completed Nisha vides [facility] 03/11/2023 13:59:16 Influenza, split virus, trivalent, preservative 4 completed Nisha vides [facility] 03/11/2023 13:59:16 Influenza, split virus, trivalent, preservative 8 [facility] 13:59:16 Influenza, split virus, trivalent, preservative 7 completed [facility]/11/[facility]23 13:59:16 Influenza, split virus, trivalent, preservative 6 completed Nisha vides [facility] 03/11/2023 13:59:16 Influenza, split virus, trivalent, PF 1 completed Nisha vides [facility] 03/11/2023 13:59:16 Td (adult), 2 Lf tetanus toxoid, preservative free, adsorbed 3 completed Nisha vides [facility] 03/11/2023 13:59:16 Past Encounters Encounter ID Performer Location Encounter Start Date Encounter Closed Date Diagnosis/Indication Diagnosis SNOMED-CT Code Diagnosis ICD10 Code Diagnosis IMO Codes Diagnosis Note [id number] MD NITESH [facility] [address] [place] [address] 02/04/2022 15:38:52 02/09/2022 15:38:20 Malignant neoplasm of prostate [id number] C61 - PSA today 0.41 ng/mL up from 0.11 ng/mL in February 2021. Patient overdue for Eligard injection- 45 mg of Eligard administer ed today. We did discuss that androgen deprivatio n therapy alone is not curative for prostate cancer.-Fo llow-up in 6 months for repeat PSA and next Eligard injection. -Patient raghavendra carranza transferri service to [place] given the drive up from his home in [place] Carcinoma of prostate 25 [id number] C61 [id number] MD NTIESH [facility] [address] [place] [address] 08/05/2022 14:37:02 08/08/2022 11:31:08 Malignant neoplasm of prostate [id number] C61 - PSA today 0.33 ng/mL- 45 mg of Eligard administer ed today. We did discuss that androgen deprivatio n therapy alone is not curative for prostate cancer.-Fo llow-up in 6 months for repeat PSA and next Eligard injection. -Patient raghavendra gonzales ng service to [place] given the drive up from his home in [place] Prostate s pecific antigen above reference range 720800719 R97.20 - As above Male hot flash [id number] 1 95155 R23.2 - Not overly bothersome [id number] Naeem Mancilla MD [facility] [address] [place], [place] [address] 03/11/2023 13:33:29 03/16/2023 14:12:14 Malignant neoplasm of prostate [id number] C61 - PSA today 0.33 ng/mL- 45 mg of Eligard administer ed today. We did discuss that androgen deprivatio n therapy alone is not curative for prostate cancer.-Fo llow-up in 6 months for repeat PSA and next Eligard injection. -Patient raghavendra gonzales ng service to [place] given the drive up from his home in [place] Prostate s pecific antigen above reference range 488247929 R97.20 - As above Male hot flash [id number] 1 73322 R23.2 - Not overly bothersome [id number] Naeem Mancilla MD [place] [address] [place] [address] 09/20/2023 14:23:32 09/21/2023 08:18:22 Malignant neoplasm of prostate [id number] C61 - PSA today 0.33 ng/mL- 45 mg of Eligard administer ed today. We did discuss that androgen deprivatio n therapy alone is not curative for prostate cancer.-Fo llow-up in 6 months for repeat PSA and next Eligard injection. Prostate s pecific antigen above reference range 756820017 R97.20 - As above Male hot flash [id number] 1 53951 R23.2 - Not overly bothersome [id number] Naeem Mancilla MD [facility] [address] [place] [address] 04/10/2024 14:13:20 04/11/2024 14:46:47 Malignant neoplasm of prostate [id number] C61 - PSA today 0.11 ng/mL- 45 mg of Eligard administer ed today. We again did discuss that androgen deprivatio n therapy alone is not curative for prostate cancer.-Fo llow-up in 6 months for repeat PSA and next Eligard injection. Prostate s pecific antigen above reference range 542201112 R97.20 - As above Male hot flash [id number] 1 77885 R23.2 - Not overly bothersome [id number] Naeem Mancilla MD [facility] [address] [place] [place] [address] 10/09/2024 15:18:32 10/13/2024 12:08:30 Malignant neoplasm of prostate [id number] C61 - PSA today 0.13 ng/mL- 45 mg of Eligard administer ed today. We again did discuss that androgen deprivatio n therapy alone is not curative for prostate cancer.-Fo llow-up in 6 months for repeat PSA and next Eligard injection. Prostate s pecific antigen above reference range 810456757 R97.20 - As above Male hot flash [id number] 1 76182 R23.2 - Not overly bothersome Health Concerns Section Related Observation LastModified by Organization Detai ls LastModified Time None Recorded Concern Status LastModified by Organization Details LastModified Time None Recorded Advance Directives Directive None Recorded Payers Insurance Date Sequence Insurance Name Policy Number Policy Gonsalves Covered Member ID Gonsalves Member ID Guarantor Name 10/13/2024 1 [employer] - DOS ON OR AFTER 19 (MEDICARE REPLACEMENT/ ADVANTAGE - PPO) [id number] Jose Jenkins [id number] Jose Jenkins Notes Date Note Type Note Provider Name and Address Organization Details Recorded Time 08/05/2022 text/html Mr. Leger is a very pleasant 81-year-old gentleman who has previously followed with my partner, Dr. Kc, in our [place] clinic for diagnosis of prostate cancer. Patient has elected to proceed with hormone therapy only rather than proceeding with surgical extrication or primary radiotherapy. Patient has had a nice response, his PSA measuring 9.4 at time of diagnosis and decreasing as low 0.11 on hormone therapy. Patient is overdue for his next Eligard injection so is here for follow-up. 08/06/19Here for follow up history of prostate cancer. He has elected to forego any definitive treatment and has been utilizing ADT monotherapy despite recommendations from both myself and Dr. Kc. PSA today 0.33 ng/mL Naeem Mancilla MD [address], [place], [address], [facility] 08/05/2022 17:54:10 03/11/2023 text/html Mr. Leger is a very pleasant 82-year-old gentleman who has previously followed with my partner, Dr. Kc, in our [place] clinic for diagnosis of prostate cancer. Patient has elected to proceed with hormone therapy only rather than proceeding with surgical extrication or primary radiotherapy. Patient has had a nice response, his PSA measuring 9.4 at time of diagnosis and decreasing as low 0.11 on hormone therapy. Patient is overdue for his next Eligard injection so is here for follow-up. 08/06/19Here for follow up history of prostate cancer. He has elected to forego any definitive treatment and has been utilizing ADT monotherapy despite recommendations from both myself and Dr. Kc. PSA today 0.33 ng/mL 03/11/2023:Here for follow up history of prostate cancer. He has elected to forego any definitive treatment and has been utilizing ADT monotherapy despite recommendations. Overall reports that he is doing well has some minor hot flashes but not bothersome enough to want to start treatment. PSA today 0.34 ng/mL Naeem Mancilla MD [address], [place], [address], [facility] 03/12/2023 10:27:56 09/20/2023 text/html Mr. Leger is a very pleasant 82-year-old gentleman who has previously followed with my partner, Dr. Kc, in our [facility] clinic for diagnosis of prostate cancer. Patient has elected to proceed with hormone therapy only rather than proceeding with surgical extrication or primary radiotherapy. Patient has had a nice response, his PSA measuring 9.4 at time of diagnosis and decreasing as low 0.11 on hormone therapy. Patient is overdue for his next Eligard injection so is here for follow-up. 08/06/19 for follow up history of prostate cancer. He has elected to forgo any definitive treatment and has been utilizing ADT monotherapy despite recommendations from both myself and Dr. Kc. PSA today 0.33 ng/mL 03/11/2023:Here for follow up history of prostate cancer. He has elected to forgo any definitive treatment and has been utilizing ADT monotherapy despite recommendations. Overall reports that he is doing well has some minor hot flashes but not bothersome enough to want to start treatment. PSA today 0.34 ng/mL 09/20/2023:Here for follow up history of prostate cancer. He has elected to forgo any definitive treatment and has been utilizing ADT monotherapy despite recommendations. PSA today 0.09 ng/mL Naeem Mancilla MD [address], [address], [facility] 09/21/2023 00:24:08 04/10/2024 text/html Mr. Leger is a very pleasant 83-year-old gentleman who has previously followed with my partner, Dr. Kc, in our [facility] clinic for diagnosis of prostate cancer. Patient has elected to proceed with hormone therapy only rather than proceeding with surgical extrication or primary radiotherapy. Patient has had a nice response, his PSA measuring 9.4 at time of diagnosis and decreasing as low 0.11 on hormone therapy. Patient is overdue for his next Eligard injection so is here for follow-up. 08/06/19Here for follow up history of prostate cancer. He has elected to forgo any definitive treatment and has been utilizing ADT monotherapy despite recommendations from both myself and Dr. Kc. PSA today 0.33 ng/mL 03/11/2023:Here for follow up history of prostate cancer. He has elected to forgo any definitive treatment and has been utilizing ADT monotherapy despite recommendations. Overall reports that he is doing well has some minor hot flashes but not bothersome enough to want to start treatment. PSA today 0.34 ng/mL 09/20/2023:Here for follow up history of prostate cancer. He has elected to forgo any definitive treatment and has been utilizing ADT monotherapy despite recommendations. PSA today 0.09 ng/mL 04/10/2024:Here for follow up history of prostate cancer. He has elected to forgo any definitive treatment and has been utilizing ADT monotherapy despite recommendations. PSA today 0.11 ng/mL Naeem Mancilla MD [address] [facility],[address], [place], [address], [facility] 04/10/2024 22:37:01 10/09/2024 text/html Mr. Leger is a very pleasant 83-year-old gentleman who has previously followed with my partner, Dr. Kc, in our [place] clinic for diagnosis of prostate cancer. Patient has elected to proceed with hormone therapy only rather than proceeding with surgical extrication or primary radiotherapy. Patient has had a nice response, his PSA measuring 9.4 at time of diagnosis and decreasing as low 0.11 on hormone therapy. Patient is overdue for his next Eligard injection so is here for follow-up. 08/06/19Here for follow up history of prostate cancer. He has elected to forgo any definitive treatment and has been utilizing ADT monotherapy despite recommendations from both myself and Dr. Kc. PSA today 0.33 ng/mL 03/11/2023:Here for follow up history of prostate cancer. He has elected to forgo any definitive treatment and has been utilizing ADT monotherapy despite recommendations. Overall reports that he is doing well has some minor hot flashes but not bothersome enough to want to start treatment. PSA today 0.34 ng/mL 09/20/2023:Here for follow up history of prostate cancer. He has elected to forgo any definitive treatment and has been utilizing ADT monotherapy despite recommendations. PSA today 0.09 ng/mL 04/10/2024:Here for follow up history of prostate cancer. He has elected to forgo any definitive treatment and has been utilizing ADT monotherapy despite recommendations. PSA today 0.11 ng/mL 10/09/2024:Here for follow up history of prostate cancer. He has elected to forgo any definitive treatment and has been utilizing ADT monotherapy despite recommendations. Psa today 0.13 ng/mL Naeem Mancilla MD [address] [facility],[address], [place], [address], [facility] 10/09/2024 17:55:12
[2025-03-15 11:33] LABS: Hematocrit* 36.1 % (37.0-53.0); Hemoglobin* 11.9 gm/dL (13.5-17.5); Immature Granulocytes Abs Auto 0.02 K/uL (0.00-0.30); Immature Granulocytes Pct Auto 0.3 %; Lymphocytes Absolute Auto 1.10 K/uL (0.90-2.90); Mean Corpuscular HGB Conc 33 gm/dL (32-36); Mean Corpuscular Hemoglobin 30 pg (26-34); Mean Corpuscular Volume 92 fL (80-100); RDW Coefficient of Variation % 14.2 % (11.5-15.5); Red Blood Count* 3.94 m/uL (4.30-5.90); White Blood Count* 6.08 K/uL (4.50-11.00)
[2025-03-15 11:45] LABS: Slide Review Reflex No
[2025-03-15 11:45] LABS: Appearance Urine Slightly Cloudy (Clear)
[2025-03-15 11:47] LABS: Troponin, Point-of-Care* 0.00 ng/ml (0.01-0.04)
[2025-03-15 11:53] LABS: Albumin* 4.4 g/dL (3.3-5.0); Chloride* 101 mmol/L (96-114); Sodium* 135 mmol/L (135-149)
[2025-03-15 11:54] LABS: Potassium* 4.3 mmol/L (3.6-5.1)
[2025-03-15 11:56] LABS: Alanine Aminotransferase* 13 U/L (4-50); Alkaline Phosphatase* 49 U/L (40-150); Anion Gap 8 mEq/L (7-15); Aspartate Amino Transferase* 25 U/L (12-35); Bilirubin Total* 0.3 mg/dL (0.1-1.5); Blood Urea Nitrogen* 15 mg/dL (7-30); Carbon Dioxide* 26 mmol/L (20-32); Creatinine* 0.8 mg/dL (0.5-1.5); Estimated Glomerular Filt Rate 86 ml/min; Total Protein* 8.2 g/dL (6.0-8.3)
[2025-03-15 11:57] LABS: Calcium* 9.5 mg/dL (8.4-10.6); Glucose* 127 mg/dL (60-115)
[2025-03-15 12:49] LABS: D Dimer Quantitative* > 20.00 ug/ml (0.00-0.50)
[2025-03-15] MEDS: 0.9 % SODIUM CHLORIDE 500 ML 500 ML IV (13:04)
--- NOTE | 2025-03-15 13:31 | CRLHL7_ITS ---
For Patients: As a result of the 21st Century Cures Act, medical imaging exams and procedure reports are released immediately into your electronic medical record. You may view this report before your referring provider. If you have questions, please contact your health care provider. INDICATION: Elevated D-dimer. Back pain. COMPARISON: 08/01/2019 TECHNIQUE: CT of the abdomen and pelvis following administration of 95 cc of Isovue 370 intravenous contrast. 2D coronal and sagittal reformatted series were performed. Please note that all CT scans at this facility use dose modulation, iterative reconstruction, and/or weight-based dosing when appropriate to reduce radiation dose to as low as reasonably achievable. FINDINGS: LOWER THORAX Please refer to the separate chest CT report from the same day for findings related to the thorax. ABDOMEN NB: Timing of imaging relative to contrast bolus administration limits assessment of the abdominopelvic viscera and venous vasculature on this arterial phase CT angiogram. Abdominal Aorta: No aneurysm, intramural hematoma, penetrating atherosclerotic ulcer, or dissection. Mild chronic aortoiliac atherosclerotic mural calcification. Abdominal aorta and its major proximal branches including the celiac, superior mesenteric, inferior mesenteric, renal, and bilateral common iliac arteries are patent. Liver: Normal contour and attenuation. No significant focal lesion. No intrahepatic biliary ductal dilatation. Portal and hepatic veins are incompletely/not enhanced on this arterial phase CT angiogram. Gallbladder: Normal size. No pericholecystic inflammatory changes. Normal common duct caliber. Pancreas: Normal contour and attenuation. No peripancreatic inflammatory changes. No significant focal lesion. Normal main duct caliber. Spleen: Not enlarged. No significant focal lesion. The splenic vein is not enhanced on this arterial phase CT angiogram. Adrenal Glands: Symmetrical adrenal glands. No significant focal lesion. Kidneys: Normal bilateral renal attenuation. No significant focal lesion. No nephrolith. No dilatation of the intrarenal collecting systems. No ureteral stone. Nondilated ureters. Renal veins are not enhanced on this arterial phase CT angiogram. Gastrointestinal tract: Normal caliber, attenuation and wall thickness of the gastrointestinal tract. No inflammatory changes. Normal small bowel mesentery. Normal appendix. Vascular: Inferior vena cava, portal and superior mesenteric veins are not opacified on this arterial phase CT angiogram and therefore their patency and caliber cannot be determined. Peritoneal Cavity/Retroperitoneum: No ascites. No adenopathy. PELVIS No bladder lesion is identified. No significant incidental findings related to the prostate or seminal vesicles. No significant ascites. No adenopathy. SKELETON AND BODY WALL No acute or significant incidental findings. IMPRESSION: 1. No abdominal aortic aneurysm, intramural hematoma, penetrating atherosclerotic ulcer, or dissection. 2. No other findings to explain the clinical history. 3. Please refer to the separate chest CT report from the same day for findings related to the thorax. Please note that all CT scans at this facility use dose modulation, iterative reconstruction, and/or weight-based dosing when appropriate to reduce radiation dose to as low as reasonably achievable. Dictated by Tiburcio Costello MD @ 03/15/2025 2:30:32 PM (Electronically Signed)
--- NOTE | 2025-03-15 13:31 | CRLHL7_ITS ---
For Patients: As a result of the 21st Century Cures Act, medical imaging exams and procedure reports are released immediately into your electronic medical record. You may view this report before your referring provider. If you have questions, please contact your health care provider. INDICATION: ELEVATED D DIMER. BACK PAIN. POSSIBLE PE OR DISSECTION. Near syncope with elevated D-dimer. (Sic) COMPARISON: 08/01/2019 TECHNIQUE: CT pulmonary angiography with 95 cc of Isovue 370 intravenous contrast. Reconstructed multiplanar MIP series were done. Please note that all CT scans at this facility use dose modulation, iterative reconstruction, and/or weight-based dosing when appropriate to reduce radiation dose to as low as reasonably achievable. FINDINGS: THORAX Pulmonary Arterial Vasculature: Opacification of the pulmonary arterial tree is adequate for assessment of pulmonary embolism. No pulmonary embolism. Visualized Lower Neck: No lower cervical adenopathy. Lungs: Bilateral lower lobe posterior segment segmental and subsegmental bronchial wall thickening consistent with nonspecific bronchitis. Bilateral symmetrical basilar predominant subpleural reticulation, subsegmental traction bronchiectasis and mild right lower lobe honeycombing consistent with a UIP pattern. No focal consolidation in either lung to indicate bronchopneumonia. Findings of pulmonary edema. Pleura: No pleural effusion. No pneumothorax. Mediastinum: Limited evaluation of the thoracic aorta due to timing of imaging relative to contrast bolus administration. No thoracic aortic aneurysm, intraluminal dissection flap or intramural hematoma. Cardiomegaly. Moderate diffuse left anterior descending and circumflex coronary artery atherosclerotic calcification. Trachea and esophagus are normal in appearance. No mediastinal lymphadenopathy. SKELETON AND BODY WALL Bilateral symmetrical gynecomastia. ABDOMEN Please refer to the separate abdominopelvic CT report from the same day for findings related to the abdomen. IMPRESSION: 1. No evidence of pulmonary embolism. 2. Limited evaluation of the thoracic aorta due to timing of imaging relative to contrast bolus administration. No thoracic aortic aneurysm, intraluminal dissection flap or intramural hematoma. 3. No other findings to explain the clinical history of back pain and near-syncope. 4. Incidental findings as above. 5. Please refer to the separate abdominopelvic CT report from the same day for findings related to the abdomen. Please note that all CT scans at this facility use dose modulation, iterative reconstruction, and/or weight-based dosing when appropriate to reduce radiation dose to as low as reasonably achievable. Dictated by Tiburcio Costello MD @ 03/15/2025 2:24:58 PM (Electronically Signed)
[2025-03-15 14:58] LABS: Troponin, Point-of-Care* 0.01 ng/ml (0.01-0.04)
[2025-03-15 15:07] LABS: NT Pro B Type NatriureticPept* 440 pg/mL (See Note)
--- NOTE | 2025-03-15 17:10 | P.IMCN_ITS ---
Date of Consult Consult date: 03/15/25 Requesting Physician: Other (Emergency Room Physician) Primary Care Provider: Jonah Tejada MD Consult Narrative Narrative: HOSPITALIST CONSULT ER consultation The hospital medicine team was asked by emergency medicine attending physician to consult on patient's presentation and differential diagnosis including plan of care. I have reviewed the active medical problems, past medical history, past surgical history, social history, allergies and medications in our electronic EMR. This includes a cross reference to care everywhere in [facility] and with [facility] databases. HPI: 84-year-old white male presented via EMS from the local [place] exercise class. Jose has a history hypertension, pulmonary fibrosis, rheumatoid arthritis, paroxysmal atrial fibrillation with a history of RVR hospitalization, prostate cancer well controlled with androgen deprivation therapy and chronic disease anemia. He felt well this morning and in his usual state of health. He was on his 3rd exercise/1st rotation through the circuit where he was seated and doing a low weight/high rep exercise of chest press. He said he somewhat suddenly felt like he was floating or disconnected from his legs. People near him said it looked like he was staring straight ahead and he was helped to the floor. He did not fall. He did not injure his head. He remained conscious the entire time. As soon as he was supine he felt better. He did not describe diaphoresis, chest pain, shortness of breath or palpitations. The dizziness or floating feeling was resolved even before the ambulance arrived. He remembers all of the events from the morning. He had no fecal or urine incontinence. No visual changes. He has had no cough or pain during any of this. Reviewing medications regularly taken. We agree he takes Lupron every 6 months, methotrexate weekly, metoprolol succinate 50 mg daily, pantoprazole 40 mg daily, he takes calcium B12. He takes folic acid. No new medications. He is not diabetic. He had not taken his blood pressure measurement this morning. He said he slept well had a normal bowel movement. He said he felt a little alcantar to get to class on time but otherwise no recent illnesses. He lives alone with his . They are both quite active. When EMS arrived and throughout his evaluation in emergency room a couple of things stood out. While his vital signs appeared normal upon EMS assessment, in the emergency room he was quite orthostatic, dropping his systolic by more than 40 points. But he did not feel poorly when this was measured. As far as his labs go he only really outstanding lab to note was a D-dimer that was greater than 20. The elevated D-dimer and near-syncope led the ER team to consider acute dissection, pulmonary embolus, cardiac arrhythmia, fixed outflow obstruction like aortic stenosis or acute coronary syndrome or cardiac tamponade. All imaging which included a CTA, CT aorta, CT abdomen pelvis were all reassuring. 2020 Echo: Final Impressions: 1. Normal LV size, mildly increased wall thickness, normal global systolic function with an estimated EF of 60 - 65%. 2. Right ventricular cavity size is normal, global systolic RV function is normal. 3. The inferior vena cava is normal sized, respiratory size variation greater than 50%. 4. No pericardial effusion. PHYSICAL EXAM: CODE STATUS: FULL CODE CONSTITUTIONAL: Conversive, good historian. A/O. Knows setting and context. Looks comfortable and younger than stated age. VITAL SIGNS: see record. HEENT: Normocephalic, atraumatic. PERRL, EOMI, conjunctivae pink, no scleral icterus. Ears and nose externally normal. Pharynx normal. NECK: No JVD. No carotid bruit, no thyromegaly, no adenopathy. CHEST: Clear to auscultation bilaterally HEART: S1 and S2 normal. No harsh outflow murmur. ABDOMEN: Flat, soft, nontender. Normal bowel sounds. EXTREMITIES: No edema. NEURO: Cranial nerves intact. Mentation normal. Normal affect. SKIN: No rashes, petechiae, concerning changes PSYCHIATRIC: Mentation normal. INVESTIGATIONS: All data reviewed: imaging, labs, EKG, prior records. DISPOSITION: home with and daughter; Zio patch placed, close f/u arranged. [facility] Medical History (Updated 03/15/25 @ 17:43 by Margaux Espino MD) ILD (interstitial lung disease) ?J84.9 - Interstitial pulmonary disease, unspecified (ICD-10) Social History Smoking Status: Never smoker How often do you have a drink containing alcohol: never AUDIT-C Alcohol total score: 0 Non-prescribed substance use: denies use Meds Home Medications and Allergies Home Medications ?Medication ?Instructions ?Recorded ?Confirmed ?Type alendronate 70 mg tablet 70 mg PO 07/19/23 History diclofenac sodium 1 % topical gel 2 g topical QID 07/0103/15/25 History methotrexate sodium 2.5 mg tablet 20 mg PO 07/19/23 H istory metoprolol succinate 50 mg 50 mg PO DAILY 07/19/23 History tablet,extended release 24 hr pantoprazole 40 mg tablet,delayed 40 mg PO DAILY 07/1903/15/25 History release Allergies Allergy/AdvReac Type Severity Reaction Status Date / Time acetaminophen (From Percocet) Allergy Mild Fainting Verified 03/15/25 10:36 lisinopril Allergy Mild Cough Verified 03/15/25 10:36 oxycodone (From Percocet) Allergy Mild Fainting Verified 03/15/25 10:36 Exam Const: Vital Signs, click to edit/add: Vital Signs - 24 hr 03/15/25 10:30 03/15/25 10:31 03/15/25 10:31 Temperature 98 F Pulse Rate 71 Pulse Rate [Right Pulse Oximeter] 70 Pulse Rate [orthos tatic lying] Pulse Rate [orthos tatic sitting] Pulse Rate [orthos tatic standing] Respiratory Rate 18 Blood Pressure 171/70 H Blood Pressure [Ri ght Upper Arm] 178/103 H Blood Pressure [or thostatic lying] Blood Pressure [or thostatic sitting] Blood Pressure [or thostatic standing ] Pulse Oximetry 98 99 Oxygen Delivery Me od Room Air 03/15/25 10:32 03/15/25 10:43 03/15/25 10:45 Temperature Pulse Rate 69 71 73 Pulse Rate [Right Pulse Oximeter] Pulse Rate [orthos tatic lying] Pulse Rate [orthos tatic sitting] Pulse Rate [orthos tatic standing] Respiratory Rate 16 Blood Pressure 175/103 H 152/82 H Blood Pressure [Ri ght Upper Arm] Blood Pressure [or thostatic lying] Blood Pressure [or thostatic sitting] Blood Pressure [or thostatic standing ] Pulse Oximetry 98 97 Oxygen Delivery Me thod 03/15/25 11:00 03/15/25 11:03 03/15/25 11:05 Temperature Pulse Rate Pulse Rate [Right Pulse Oximeter] Pulse Rate [orthos tatic lying] Pulse Rate [orthos tatic sitting] Pulse Rate [orthos tatic standing] Respiratory Rate 23 16 24 Blood Pressure Blood Pressure [Ri ght Upper Arm] Blood Pressure [or thostatic lying] Blood Pressure [or thostatic sitting] Blood Pressure [or thostatic standing ] [facility] 11:08 03/15/25 11:16 03/15/25 11:30 Temperature Pulse Rate Pulse Rate [Right Pulse Oximeter] Pulse Rate [orthos tatic lying] Pulse Rate [orthos tatic sitting] Pulse Rate [orthos tatic standing] Respiratory Rate 22 16 14 Blood Pressure 158/124 H Blood Pressure [Ri ght Upper Arm] Blood Pressure [or thostatic lying] Blood Pressure [or thostatic sitting] Blood Pressure [or thostatic standing ] Pulse Oximetry [facility] 03/15/25 11:32 03/15/25 11:34 03/15/25 11:35 Temperature Pulse Rate Pulse Rate [Right Pulse Oximeter] Pulse Rate [orthos tatic lying] Pulse Rate [orthos tatic sitting] Pulse Rate [orthos tatic standing] Respiratory Rate 33 H 35 H 7 L Blood Pressure 162/78 H 149/81 H 120/72 Blood Pressure [Ri ght Upper Arm] Blood Pressure [or thostatic lying] Blood Pressure [or thostatic sitting] Blood Pressure [or thostatic standing ] Pulse Oximetry [facility] 03/15/25 11:37 03/15/25 11:45 03/15/25 12:00 Temperature Pulse Rate Pulse Rate [Right Pulse Oximeter] Pulse Rate [orthos tatic lying] 63 Pulse Rate [orthos tatic sitting] 70 Pulse Rate [orthos tatic standing] 80 Respiratory Rate 14 22 Blood Pressure Blood Pressure [Ri ght Upper Arm] Blood Pressure [or thostatic lying] 162/78 H Blood Pressure [or thostatic sitting] 149/81 H Blood Pressure [or thostatic standing ] 120/72 Pulse Oximetry [facility] 03/15/25 12:03 03/15/25 12:15 03/15/25 12:23 Temperature Pulse Rate Pulse Rate [Right Pulse Oximeter] Pulse Rate [orthos tatic lying] Pulse Rate [orthos tatic sitting] Pulse Rate [orthos tatic standing] Respiratory Rate 22 20 15 Blood Pressure 151/84 H 154/108 H Blood Pressure [Ri ght Upper Arm] Blood Pressure [or thostatic lying] Blood Pressure [or thostatic sitting] Blood Pressure [or thostatic standing ] Pulse Oximetry Oxygen Delivery Vt thod 03/15/25 12:30 03/15/25 12:42 03/15/25 12:45 Temperature Pulse Rate Pulse Rate [Right Pulse Oximeter] Pulse Rate [orthos tatic lying] Pulse Rate [orthos tatic sitting] Pulse Rate [orthos tatic standing] Respiratory Rate 17 16 24 Blood Pressure 166/86 H Blood Pressure [Ri ght Upper Arm] Blood Pressure [or thostatic lying] Blood Pressure [or thostatic sitting] Blood Pressure [or thostatic standing ] Pulse Oximetry Oxygen Delivery Vt thod 03/15/25 13:00 03/15/25 13:02 03/15/25 13:15 Temperature Pulse Rate Pulse Rate [Right Pulse Oximeter] Pulse Rate [orthos tatic lying] Pulse Rate [orthos tatic sitting] Pulse Rate [orthos tatic standing] Respiratory Rate 27 H 26 H 17 Blood Pressure 151/123 H Blood Pressure [Ri ght Upper Arm] Blood Pressure [or thostatic lying] Blood Pressure [or thostatic sitting] Blood Pressure [or thostatic standing ] Pulse Oximetry [facility] 03/15/25 13:30 03/15/25 13:45 03/15/25 14:07 Temperature Pulse Rate Pulse Rate [Right Pulse Oximeter] Pulse Rate [orthos tatic lying] Pulse Rate [orthos tatic sitting] Pulse Rate [orthos tatic standing] Respiratory Rate 22 28 H 22 Blood Pressure Blood Pressure [Ri ght Upper Arm] Blood Pressure [or thostatic lying] Blood Pressure [or thostatic sitting] Blood Pressure [or thostatic standing ] Pulse Oximetry [facility] 03/15/25 14:30 03/15/25 14:45 03/15/25 15:00 Temperature Pulse Rate Pulse Rate [Right Pulse Oximeter] Pulse Rate [orthos tatic lying] Pulse Rate [orthos tatic sitting] Pulse Rate [orthos tatic standing] Respiratory Rate 14 16 27 H Blood Pressure Blood Pressure [Ri ght Upper Arm] Blood Pressure [or thostatic lying] Blood Pressure [or thostatic sitting] Blood Pressure [or thostatic standing ] Pulse Oximetry [facility] 03/15/25 15:15 03/15/25 15:24 03/15/25 15:25 Temperature Pulse Rate Pulse Rate [Right Pulse Oximeter] Pulse Rate [orthos tatic lying] Pulse Rate [orthos tatic sitting] Pulse Rate [orthos tatic standing] Respiratory Rate 13 19 Blood Pressure 158/85 H Blood Pressure [Ri ght Upper Arm] Blood Pressure [or thostatic lying] Blood Pressure [or thostatic sitting] Blood Pressure [or thostatic standing ] Pulse Oximetry 96 Oxygen Delivery Me thod Room Air Labs Labs: Short CBC 03/15/25 Range/Units 11:20 WBC 6.08 (4.50-11.00) K/uL Hgb 11.9 L (13.5-17.5) gm/dL Hct 36.1 L (37.0-53.0) % Plt Count 305 (140-440) K/uL BMP 03/15/25 11:20 Sodium 135 Potassium 4.3 Chloride 101 Carbon Dioxide 26 BUN 15 Creatinine 0.8 Glucose 127 H Calcium 9.5 Liver Function 03/15/25 Range/Units 11:20 Total Bilirubin 0.3 (0.1-1.5) mg/dL AST 25 (12-35) U/L ALT 13 (4-50) U/L Alkaline Phosphatase 49 (40-150) U/L Albumin 4.4 (3.3-5.0) g/dL Urine 03/15/25 Range/Units 11:40 Urine Color Yellow (Yellow) Urine Appearance Slightly Cloudy A (Clear) Urine pH 7.5 (5.0-8.5) Ur Specific [place] 1.020 (1.000-1.030) Urine Protein 1+ A (Negative) Urine Glucose (UA) Negative (Negative) Assessment and Plan Assessment and plan (1) Near syncope: Problem comment: -the ?do not miss diagnoses effectively ruled out. This includes aortic dissection, PE, acute coronary syndrome. -differential would include smaller subsegmental PE not seen on imaging, orthostatic hypotensive near-syncope, cardiac arrhythmia, vasovagal, worsening pulmonary hypertension from his pulmonary fibrosis -I recommended to the ER that he go home on a Zio patch, outpatient echocardiogram and/or stress echocardiogram and follow-up by his primary care physician. No new medications or adjustment to medications were made. Status: Acute (2) Orthostatic hypotension: Problem comment: -we discussed water intake, standing slowly from a seated position, and lifting and pushing weights -low threshold to return Status: Acute (3) ILD (interstitial lung disease): Problem comment: -known previously; radiographic progression is apparent. I do not think an acute process like PNA or CHF is underlying this. However right heart pressures should be examined with echocardiogram to assess for pulmonary HTN. If c/w care goals - referral to pulmonary medicine and/or cardiology in the outpatient setting is appropriate. Status: Acute
== END 2025-03-15 16:51 | disposition home or self-care (01) ==
PROVIDERS: Emergency Provider Family Medicine; PCP Surgery
DX: R55 Syncope and collapse (principal); R82.90 Unspecified abnormal findings in urine; I10 Essential (primary) hypertension
CPT/HCPCS: 36415; 71045; 71275; 74177; 80053; 81001; 83735; 83880; 84484; 85025; 85379; 86140; 87086; 93005; 93246; 99285; J7030; Q9967